=== PATIENT | female | born 2000 | race Caucasian/White ===

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

== ENCOUNTER 2022-04-26 13:01 | Outpatient (CLI) | payer OTHER, SELFPAY ==
[2022-04-26 20:03] LABS: Alanine Aminotransferase 17 U/L (6-35); Albumin Level 4.6 g/dL (3.7-5.6); Alkaline Phosphatase 54 U/L (45-116); Anion Gap 15 mmol/L (8-16); Aspartate Amino Transferase 37 U/L (14-36); Bilirubin,Total 0.5 mg/dL (0.2-1.3); Blood Urea Nitrogen 13 mg/dL (8-21); Calcium 9.4 mg/dL (8.9-10.7); Carbon Dioxide 23 mmol/L (22-30); Chloride 102 mmol/L (98-107); Estimated Glomerular Filt Rate > 60; Glucose 116 mg/dL (65-110); Potassium 3.9 mmol/L (3.4-5.0); Sodium 140 mmol/L (134-143)
[2022-04-26 20:08] LABS: Vitamin D 25 Hydroxy 46.7 ng/mL
[2022-04-26 20:42] LABS: Thyroid Stimulating Hormone 0.638 uIU/mL (0.465-4.680)
[2022-04-26 21:25] LABS: Basophils Percent Auto 0.5 % (0.2-1.2); Eosinophils Absolute Auto 0.2 K/mm3 (0-0.3); Eosinophils Percent Auto 2.5 % (0-4.4); Hematocrit 44.2 % (37.0-47.0); Hemoglobin 14.2 g/dL (12.0-15.0); Immature Granulocyte Absolute 0.02 K/mm3 (0.00-0.031); Immature Granulocyte Percent A 0.2 % (0-0.5); Lymphocytes Absolute Auto 2.76 K/mm3 (0.9-3.2); Lymphocytes Percent Auto 31.7 % (18.3-44.2); Mean Corpuscular HGB Conc 32.1 g/dl (32-36); Mean Corpuscular Hemoglobin 30.8 pg (26-34); Mean Corpuscular Volume 95.9 fl (80-100); Mean Platelet Volume 10.7 fl (7.4-10.4); Monocytes Absolute Auto 0.4 K/mm3 (0.1-0.6); Monocytes Percent Auto 4.9 % (2.6-8.5); Neutrophils Absolute Auto 5.2 K/mm3 (1.3-6.7); Neutrophils Percent Auto 60.2 % (45.5-73.1); Platelet Count Result 309 k/mm3 (150-375); Red Blood Count 4.61 M/mm3 (4.2-5.4); Red Cell Distribution Width 12.1 % (11.5-14.5); White Blood Count 8.7 K/mm3 (4.5-10.0)
== END 2022-04-26 13:02 | disposition home or self-care (01) ==
LOC: ANHGOSHLAB 13:02
PROVIDERS: PCP Nurse Practitioner Family; Visit Provider Nurse Practitioner Family
DX: E55.9 Vitamin D deficiency, unspecified (principal); Z00.00 Encounter for general adult medical examination without abnormal findings; F41.1 Generalized anxiety disorder
CPT/HCPCS: 36415; 80053; 82306; 84443; 85025

== ENCOUNTER 2023-05-04 14:19 | Outpatient (CLI) | payer OTHER, SELFPAY ==
[2023-05-04 18:39] LABS: Basophils Absolute Auto 0.1 K/mm3 (0.0-0.1); Basophils Percent Auto 0.6 % (0.2-1.2); Eosinophils Absolute Auto 0.1 K/mm3 (0-0.3); Eosinophils Percent Auto 0.9 % (0-4.4); Hematocrit 43.4 % (37.0-47.0); Hemoglobin 13.8 g/dL (12.0-15.0); Immature Granulocyte Absolute 0.03 K/mm3 (0.00-0.031); Immature Granulocyte Percent A 0.3 % (0-0.5); Lymphocytes Absolute Auto 2.82 K/mm3 (0.9-3.2); Lymphocytes Percent Auto 27.9 % (18.3-44.2); Mean Corpuscular HGB Conc 31.8 g/dl (32-36); Mean Corpuscular Hemoglobin 30.4 pg (26-34); Mean Corpuscular Volume 95.6 fl (80-100); Mean Platelet Volume 10.5 fl (7.4-10.4); Monocytes Absolute Auto 0.8 K/mm3 (0.1-0.6); Monocytes Percent Auto 7.8 % (2.6-8.5); Neutrophils Absolute Auto 6.3 K/mm3 (1.3-6.7); Neutrophils Percent Auto 62.5 % (45.5-73.1); Platelet Count Result 309 k/mm3 (150-375); Red Blood Count 4.54 M/mm3 (4.2-5.4); Red Cell Distribution Width 12.2 % (11.5-14.5); White Blood Count 10.1 K/mm3 (4.5-10.0)
[2023-05-04 19:16] LABS: Alanine Aminotransferase 14 U/L (6-35); Albumin Level 4.5 g/dL (3.5-5.1); Alkaline Phosphatase 53 U/L (38-126); Anion Gap 7 mmol/L (8-16); Aspartate Amino Transferase 37 U/L (14-36); Bilirubin,Total 0.4 mg/dL (0.2-1.3); Blood Urea Nitrogen 9 mg/dL (7-17); Calcium 9.4 mg/dL (8.4-10.2); Carbon Dioxide 28 mmol/L (22-30); Chloride 103 mmol/L (98-107); Estimated Glomerular Filt Rate > 60; Glucose 86 mg/dL (65-110); Potassium 4.2 mmol/L (3.4-5.0); Sodium 138 mmol/L (137-145)
[2023-05-04 19:43] LABS: Thyroid Stimulating Hormone 0.482 uIU/mL (0.465-4.680)
[2023-05-04 20:22] LABS: Vitamin D 25 Hydroxy 41.5 ng/mL
[2023-05-08 10:59] LABS: Vitamin B6 53.1 ng/mL (2.1-21.7)
== END 2023-05-04 14:20 | disposition home or self-care (01) ==
LOC: ANHGOSHLAB 14:20
PROVIDERS: PCP Family Medicine; Visit Provider Nurse Practitioner Family
DX: Z13.29 Encounter for screening for other suspected endocrine disorder (principal); R20.0 Anesthesia of skin; R20.2 Paresthesia of skin; R11.2 Nausea with vomiting, unspecified; E55.9 Vitamin D deficiency, unspecified; R53.83 Other fatigue; E53.8 Deficiency of other specified B group vitamins; D64.9 Anemia, unspecified
CPT/HCPCS: 36415; 80053; 82306; 82607; 84207; 84443; 85025

== ENCOUNTER 2024-06-13 10:54 | Outpatient (CLI) | payer OTHER, SELFPAY ==
[2024-06-13 14:14] LABS: Basophils Absolute Auto 0.1 K/mm3 (0.0-0.1); Basophils Percent Auto 0.6 % (0.2-1.2); Eosinophils Absolute Auto 0.3 K/mm3 (0-0.3); Eosinophils Percent Auto 3.6 % (0-4.4); Hematocrit 43.6 % (37.0-47.0); Hemoglobin 14.3 g/dL (12.0-15.0); Immature Granulocyte Absolute 0.02 K/mm3 (0.00-0.031); Immature Granulocyte Percent A 0.2 % (0-0.5); Lymphocytes Absolute Auto 2.86 K/mm3 (0.9-3.2); Lymphocytes Percent Auto 33.6 % (18.3-44.2); Mean Corpuscular HGB Conc 32.8 g/dl (32-36); Mean Corpuscular Hemoglobin 30.3 pg (26-34); Mean Corpuscular Volume 92.4 fl (80-100); Mean Platelet Volume 10.6 fl (7.4-10.4); Monocytes Absolute Auto 0.8 K/mm3 (0.1-0.6); Monocytes Percent Auto 9.3 % (2.6-8.5); Neutrophils Absolute Auto 4.5 K/mm3 (1.3-6.7); Neutrophils Percent Auto 52.7 % (45.5-73.1); Platelet Count Result 287 k/mm3 (150-375); Red Blood Count 4.72 M/mm3 (4.2-5.4); Red Cell Distribution Width 11.9 % (11.5-14.5); White Blood Count 8.5 K/mm3 (4.5-10.0)
[2024-06-13 16:56] LABS: Thyroid Stimulating Hormone Reflex 0.441 uIU/mL (0.465-4.68)
[2024-06-13 17:54] LABS: Free T4 Free Thyroxine Reflex 0.97 ng/dL (0.78-2.19)
[2024-06-13 18:43] LABS: Alanine Aminotransferase 9 U/L (6-35); Albumin Level 4.2 g/dL (3.5-5.1); Alkaline Phosphatase 62 U/L (38-126); Anion Gap 6 mmol/L (4-12); Aspartate Amino Transferase 40 U/L (14-36); Bilirubin,Total 0.4 mg/dL (0.2-1.3); Blood Urea Nitrogen 10 mg/dL (7-17); Calcium 9.3 mg/dL (8.4-10.2); Carbon Dioxide 25 mmol/L (22-30); Chloride 108 mmol/L (98-107); Cholesterol 166 mg/dL (0-200); Estimated Glomerular Filt Rate > 60; Glucose 74 mg/dL (65-110); HDL Direct 39 mg/dL; Potassium 4.4 mmol/L (3.4-5.0); Sodium 139 mmol/L (137-145); Triglycerides 78 mg/dL (<150)
[2024-06-13 18:55] LABS: LDL Cholesterol Direct 92 mg/dL
[2024-06-13 21:02] LABS: Total Triiodothyronine (T3) 1.63 NG/ML (0.97-1.69)
== END 2024-06-13 10:55 | disposition home or self-care (01) ==
LOC: ANHGOSHLAB 10:55
PROVIDERS: PCP Family Medicine; Visit Provider Nurse Practitioner Family
DX: E53.8 Deficiency of other specified B group vitamins (principal); F41.9 Anxiety disorder, unspecified; Z00.00 Encounter for general adult medical examination without abnormal findings; Z79.899 Other long term (current) drug therapy; Z13.220 Encounter for screening for lipoid disorders
CPT/HCPCS: 36415; 80053; 80061; 82607; 84439; 84443; 84480; 85025

== ENCOUNTER 2024-10-05 07:45 | Emergency (ER) | payer OTHER, SELFPAY ==
--- OUTSIDE RECORDS SUMMARY | 2024-10-05 07:49 | XMS_ITS | Clinical Summary ---
Author Organization [facility] Address [address] [place] [address] Care Team Providers Care Implement Mechanic Name Role Phone Nathan Nevarez MD Primary Care Provider Allergies No known active allergies Social History Tobacco Use Types Packs/Day Years Used Date Smoking Tobacco: Never Assessed Personal Safety Answer Date Recorded Getting School Help Needed Not on file 02/03 Comments No Sex and Gender Information Value Date Recorded Sex Assigned at Not on file Legal Sex Female 11:35 PM REHAB OFFICE COORDINATOR Gender Identity Not on file Sexual Orientation Not on file Last Filed Vital Signs Vital Sign Reading Time Taken Comments Blood Pressure 118/71 01/28/2023 5:30 PM CDT Pulse 60 01/28/2023 5:30 PM CDT Temperature 36.8 C (98.2 F) 01/28/2023 11:41 AM CDT Respiratory Rate 18 01/28/2023 1:56 PM CDT Oxygen Saturation 100% 01/28/2023 5:30 PM CDT Inhaled Oxygen Concentration - - Weight 70.3 kg (155 lb) 01/28/2023 11:41 AM CDT Height - - Body Mass Index - - Plan of Treatment Health Maintenance Due Date Last Done Comments Cervical Cancer Screening 2002 Depression Screening 2002 Hepatitis C Screening 2002 HPV Vaccines (1 - 3-dose series) 2017 Meningococcal B Vaccine (1 o f 2 - Standard) 2018 Regular Well Visit/Exam 18-64 2020 DTaP/Tdap/Td Vaccine (9 - Td or Tdap) 03/09/2024 03/09/2014, 03/09/2014, 07/25/2013, Additional history exists Covid-19 Vaccine (2023-2 5 season) 2024 04/15/2021, 03/25/2021 Influenza Vaccine (#1) 2024 Hepatitis B Screening Completed 06/07/2003 , 2002, 2002 Pneumococcal vaccine <65 Completed 004, 03/16/2003, 03/16/2003, Additional history exists Varicella Vaccines Completed 02/08/2008, 12/16/2003 Insurance [employer] JUAN C [id number] Care Teams Implement Mechanic Relationship Specialty Start Date End Date Nathan Nevarez MD PCP - General Family Practice 01/28/23
--- OUTSIDE RECORDS SUMMARY | 2024-10-05 07:49 | XMS_ITS | Clinical Summary ---
Author Organization [facility] Address [address] [place] [address] Care Team Providers Care Electric Power Line Repairer Name Role Phone Brittney Sepulveda MD Primary Care Provider [phone] Source Comments [facility],non-owned Affiliates and Associated Physician Practices is amultiple site organization consisting of ambulatory clinics and hospital sitesin [place], [place], [place] and [place]. This disclosure is being madepursuant to the Care Everywhere program and may not contain all information available regarding this patient. Last updated 18.[employer] [facility] Allergies No known active allergies Medications * Be aware that medications may not be up to date on this document. Alwaysverify current medications with the patient. Medication Sig Dispensed Refills Start Date End Date Status hydrOXYzine hcl (ATARAX) 10 MG tablet Take 10 mg by mouth 4 times daily as needed for Itching Active citalopram (CELEXA) 10 MG tablet Take 10 mg by mouth once daily Active levonorgestrel-ethinyl estradiol (VIENVA) 0.1-20 MG-MCG tablet Take 1 tablet by mouth once daily Active Active Problems Problem Noted Date Diagnosed Date BMI (body mass index), pediatric, 95-99% for age 0803/09/2014 Immunizations Name Administration Dates Next Due DTaP VACCINE IM (6wk-6yrs) 02/08/2008,,03/16/2003,01/12/2003, 2002 HEP B VACCINE, PED/ADOL 06/07/2003,2002, HIB BOOSTER 12/16/2003,03/16/2003,01/12/2003 ,2002 MENINGOCOCCAL CONJUGATE (MCV4P) 03/09/2014 MMR 02/08/2008,09/02/2003 PNEUMOCOCCAL CONJ, PEDS 09/02/2003,03/16/2003,,2002 POLIO IPV 02/08/2008,03/19/2004,01/12/2003 ,2002 PPD 09/02/2003 TDAP (7yrs+) 03/09/2014 VARICELLA 02/08/2008,12/16/2003 Family History Medical History Relation Name Comments Kidney Disease Father Heart Disease Maternal Grandfather Stroke Maternal Grandfather Allergies Mother Migraine Mother Arthritis Paternal Grandfather Hypertension Paternal Grandfather Cancer Paternal Grandmother ovarian Relation Name Status Comments Father Maternal Grandfather Mother Paternal Grandfather Paternal Grandmother Social History Tobacco Use Types Packs/Day Years Used Date Smoking Tobacco: Never Smokeless Tobacco: Never Sex and Gender Information Value Date Recorded Sex Assigned at Not on file Gender Identity Not on file Sexual Orientation Not on file Last Filed Vital Signs Vital Sign Reading Time Taken Comments Blood Pressure 102/78 12/01/2018 4:01 PM CDT Pulse 67 12/01/2018 4:01 PM CDT Temperature 37.1 C (98.7 F) 12/01/2018 4:01 PM CDT Respiratory Rate 17 12/01/2018 4:01 PM CDT Oxygen Saturation 98% 12/01/2018 4:01 PM CDT Inhaled Oxygen Concentration - - Weight 63.5 kg (140 lb) 12/01/2018 4:01 PM CDT Height 160 cm (5' 3 ) 12/01/2018 4:01 PM CDT Body Mass Index 24.8 12/01/2018 4:01 PM CDT Plan of Treatment Health Maintenance Due Date Last Done Comments PAP SMEAR 2002 HIV SCREENING 2017 HPV VACCINE (1 - 3-dose series) 2017 CHLAMYDIA/GONORRHEA SCREENING 2018 MENINGOCOCCAL (Group B) VACCINE SHARED DECISION-MAKING (1 of 2 - Standard) 2018 HEPATITIS C SCREENING 08/26/2020 DTAP/TDAP/TD VACCINES (7 - Td or Tdap) 03/09/2024 03/09/2014, 02/08/2008, 03/19/2004, Additional history exists COVID-19 VACCINE ( season) 2024 INFLUENZA VACCINE (#1) 2024 DEPRESSION SCREENING 07/25/2024 ZOSTER VACCINE (1 of 2) 2052 HEPATITIS B VACCINE Completed 06/07/2003, 2002, 2002 PNEUMOCOCCAL VACCINE Completed 09/02/2003, 03/16/2003, 01/12/2003, Additional history exists HIB VACCINE Completed 12/16/2003, 02/23, 01/12/2003, Additional history exists MENINGOCOCCAL GROUPS A/C/Y/W VACCINE Aged Out 03/09/2014 No longer eligible based on patient's age to complete this topic Goals Goal Patient Goal Type Associated Problems Recent Progress Patient-Stated? Author Reduce calorie intake Diet No Karen Garber MD Note: Caring for Your Overweight Child Eating a healthy diet: Think of the food your child eats in terms of GO, SLOW, and WHOA foods. They can enjoy GO foods almost any time they like. Limit SLOW foods to certain occasions, no more than a few times per week. And enjoy WHOA foods only on special occasions, and then eat only a small portion. GO foods include low-fat, low-calorie foods that are also low in added sugar. They tend to be rich in nutrients, such as vitamins, minerals, and other healthy substances. Fresh fruits and vegetables are great examples of GO foods. That said, fried vegetables and fruits canned in syrup, despite their vital ingredients, fall into the category of WHOA foods. Be sure to stock up on GO foods so that you can offer a variety of foods to keep things interesting. SLOW foods tend to be higher in fat and added sugar than GO foods are. Examples include fruit juices, baked goods made with white, refined flour; and poultry cooked with the skin still on. WHOA foods are the highest in fat and added sugar. Foods prepared with heavy creams and butter, fried foods, and fatty meats are examples of foods your child should only eat once in a while. One way to identify unhealthy eating triggers is for your child to keep a journal, in which they writes down the food they ate, where they ate it, the time of day and - extremely important - the reasons for eating. Did they devour two slices of meatball pizza after school because they were truly hungry or because they simply wanted to hang out at the pizza parlor with their friends? If they give the latter reason, perhaps next time the group can split a pizza and she could consciously choose to n urse a single slice, even if everyone else grabs two. Where can I go for more information? [employer] [employer] ( ) www.aap.org, HealthyChildren.org www.healthychildren.org Website and free downloadable gosia for smartphones: http://www.MENA PRESTIGE/ Use safety retraint in car Lifestyle Not on track( 017 11:23 AM CDT) Lashell Gaines RN Care Teams Electric Power Line Repairer Relationship Specialty Start Date End Date Brittney Sepulveda MD PCP - General Family Medicine 08/23/16
--- OUTSIDE RECORDS SUMMARY | 2024-10-05 07:49 | XMS_ITS | Patient Health Record ---
Author Organization [facility] Address [address] [place] [address] Support Name Relationship Address Phone Sandra Foster Guarantor Unknown Unavailable Reason For Referral No Information Plan Of Treatment No Information Insurance Providers Payer Name Payer Address Payer Phone Subscriber Number Group Number Insured Name Patient Relationship to Insured Coverage Start Date Coverage End Date All Sa[employer] [address] [address] [place], [place] [id number] Sandra Foster Self - patient is the insured
--- OUTSIDE RECORDS SUMMARY | 2024-10-05 07:49 | XMS_ITS | Data Portability ---
Author Organization [facility] Address [address] [place] [address] Care Team Providers Care Outsole Scheduler Name Role Phone SIMRAN PYLE Primary Care Provider [phone] RUPERTO MALDONADO Primary Care Provider [phone] Assessment Encounter Date Assessment Date Assessment LastModified by Organization Details LastModified Time 07/02/2024 07/02/2024 Annual gynecological exam performed. Patient will come back in a year unless there are new symptoms. [email or web address] Not available 06/29/2024 11:31:12 Plan of Treatment Reminders Order Date Submit Date Provider Last Modified By Organization Details Last Modified Time Details Appointments None recorded. Lab pap, IG + reflex HPV if ASC-U - if hpv positive run subtyping 16, 18/45 2023 024 [facility] (Lab), [address], [place], [address], 4 16:43:14 urinalysis, dipstick 2023 024 [email or web address], [address], [address], [place], [address], 4 10:08:35 hsv (1+2) DNA, serum 2022 023 [facility] (Lab), [address], [place], [address], 3 10:48:14 hsv-2 igg Ab, serum 2022 023 [facility] (Lab), [address], [place], [address], 3 10:48:14 hsv-1 igg Ab, serum 2022 023 [facility] (Lab), [address], [place], [address], 3 10:48:13 Referral None recorded. Procedures None recorded. Surgeries None recorded. Imaging None recorded. Medication Orders Nextstellis 3 mg-14.2 mg (28) tablet 2023 024 [facility], [facility] [place], [address], 4 09:19:46 valacyclovi r 500 mg tablet [address] [facility] [place], [address], 4 10:37:25 Macrobid 100 mg capsule 2023 024 [facility], [address] [place], [address], 4 12:20:44 Valtrex 1 gram tablet 2022 023 [facility], [address] [facility] [place], [place], [id number], 3 12:24:14 Nextstellis 3 mg-14.2 mg (28) tablet [email or web address] [facility], [place], [address], 3 14:28:59 Macrobid 100 mg capsule [email or web address] [place] [address] [facility] Store #77447, [address] , [place], [place], [id number], 4 11:31:28 Valtrex 1 gram tablet [address] [facility] #86595, [address] [facility], [place], [place], [id number], 3 17:15:30 lidocaine HCl 2 % mucosal jelly [address] [facility] #39504, [address] [facility], [place], [place], [id number], 3 12:07:57 Silvadene 1 % topical cream [address] [facility] #86621, [address] [facility], [place], [place], [id number], 4 09:32:42 Nextstellis 3 mg-14.2 mg (28) tablet [address] [facility]21921, [address] [facility], [place], [place], [id number], 3 11:34:56 Patient TargetsNo targets recorded. Patient InstructionsNo instructions recorded. Reason for Referral None Reported. Results Created Date Observation Date Name Description Value Unit Range Abnormal Flag Note LastModifiedBy Organization Detail LastModifiedTime 06/13/2006/13/2023 CT/GC AND TRICH OMONA S VAGIN EZE (RRNA ), SWAB chlamydia trachomatis, PCR Negati ve negati ve Not Available [facility] (Lab) [address], [place], [address], 06/14/2023 12:38:47 06/13/2006/13/2023 CT/GC AND TRICH OMONA S VAGIN EZE (RRNA ), SWAB neisseria gonorrhoeae, PCR Negati ve negati ve Not Available [facility] (Lab) [address], [place], [address], 06/14/2023 12:38:47 06/13/20 23 06/13/2023 CT/GC AND TRICH OMONA S VAGIN EZE (RRNA ), SWAB trichomonas vaginalis ribosomal RNA (rrna) Negati ve negati ve Not Available [facility] (Lab) [address], [place], [address], 06/14/2023 12:38:47 06/13/20 23 06/13/2023 HERPE S SMPLE X VIRUS TYPE 1 SPECI FIC AB, IGG herpes simplex virus 1 IgG Positi ve negati ve abnormal Not Available [facility] (Lab) [address], [place], [address], 06/19/2023 10:48:13 06/13/20 23 06/13/2023 HERPE S SMPLE X VIRUS TYPE 1 SPECI FIC AB, IGG herpes simplex virus 1 IgG, quant 1.1 ai 0.0-0. 8 high Not Available [facility] (Lab) [address], [place], [address], 06/19/2023 10:48:13 06/13/20 23 06/13/2023 HERPE S SIMPL EX VIRUS TYPE 2 SPECI FIC AB, IGG herpes simplex virus 2 IgG Negati ve negati ve Not Available [facility] (Lab) [address], [place], [address], 06/19/2023 10:48:14 06/13/20 23 06/13/2023 HERPE S SIMPL EX VIRUS TYPE 2 SPECI FIC AB, IGG herpes simples virus 2 IgG, quant <0.2 ai 0.0-0. 8 Not Available [facility] (Lab) [address] [place], [address], 06/19/2023 10:48:14 06/13/20 23 06/13/2023 HERPE S SIMPL EX VIRUS 1,2 DNA, RT PCR, BLOOD /BODY FLUID source SERUM Not Available [facility] (Lab) [address] [place] [facility] [place], [address], 06/19/2023 10:48:14 06/13/20 23 06/13/2023 HERPE S SIMPL EX VIRUS 1,2 DNA, RT PCR, BLOOD /BODY FLUID hsv 1 DNA DETECT ED abnormal Low Posit chikis. Resul t(s) confi rmed by john curtis. Not Available [facility] (Lab) [address], [place], [address], 06/19/2023 10:48:14 06/13/20 23 06/13/2023 HERPE S SIMPL EX VIRUS 1,2 DNA, RT PCR, BLOOD /BODY FLUID hsv 2 DNA NOT DETECT ED REFER ENCE RANGE : NOT DETEC KELLY This test was devel oped and its phoebe tical perfo rmanc e maggy cteri stics have been deter mined by [facility]. It has not been clear ed or appro jimena by FDA. This assay has been valid ated pursu ant to the CLIA regul ation s and is used for clini vadim purpo ses. Not Available [facility] (Lab) [address], [place], [address], 06/19/2023 10:48:14 04/27/20 24 04/27/2024 WOMEN 'S HEALT H SWAB PLUS, RO bacterial vaginosis (bv), tma Negati ve negati ve Not Available [facility] (Lab) [address], [place], [address], 05/05/2024 08:22:17 04/27/20 24 04/27/2024 WOMEN 'S HEALT H SWAB PLUS, RO nadiya species, tma Positi ve negati ve abnormal Not Available [facility] (Lab) [address], [place], [address], 05/05/2024 08:22:17 04/27/20 24 04/27/2024 WOMEN 'S HEALT H SWAB PLUS, RO nadiya glabrata, tma Negati ve negati ve Not Available [facility] (Lab) [address], [place], [address], 05/05/2024 08:22:17 04/27/20 24 04/27/2024 WOMEN 'S HEALT H SWAB PLUS, RO trichomonas vaginalis, tma Negati ve negati ve Not Available [facility] (Lab) [address], [place], [address], 05/05/2024 08:22:17 04/27/20 24 04/27/2024 [facility], RO chlamydia trachomatis, PCR Negati ve negati ve Not Available [facility] (Lab) [address], [place], [address], 05/05/2024 08:22:17 04/27/20 24 04/27/2024 [facility], RO neisseria gonorrhoeae, PCR Negati ve negati ve Bacte rial vagin osis detec ts the follo wing bacte juanito assoc iated with bacte rial vagin osis (BV): Lacto bacil marleny (L. gasse ri, L. crisp atus and L. jense isadora), Gardn erell a vagin eze, and Atopo bium vagin ae. A singl e quali tativ e resul t is repor kelly base on instr ument softw are to deter mine BV posit chikis or negat chikis statu s. The [facility] speci es group tests for C. albic ans, C. tropi calis , C. parap damian is, C. dubli niens is. Testi ng is perfo rmed using the Trans cript ion Media kelly Ampli ficat ion metho d. Tests for Kamini da glabr kenneth, Trich omona s vagin eze, Chlam ydia trach omati s, and Neiss eria gonor rhoea e are also inclu ded in this panel . Not Available [facility] (Lab) [address], [place], [address], 05/05/2024 08:22:17 04/27/20 24 04/27/2024 CULTU RE: URINE result report SEE RESULT S BELOW Test: Cultu re: Urine Speci men Sourc e: Urine - Clean Catch Speci men Type: Urine Speci men Date: 2023 0950 Resul t Date: 2023 0450 Resul t Statu s: Final resul t Abnor mal: No Resul ting Lab: [facility] [address] [facility] [place] [address] Tel: CULTU RE ----- ----- ----- --- No growt h in 1 day (dete ction level of 10,00 0 colon ies / ml.) Not Available [facility] (Lab) [address], [place], [address], 05/05/2024 08:22:17 04/27/20 24 04/27/2024 CULTU RE: HSV/ VZV hsv culture/type Commen t abnormal Posit chikis for Herpe s simpl ex virus type- 1. Typin g was confi rmed by monoc lonal antib frantz micro scopi c immun ofluo resce nce. Not Available [facility] (Lab) [address], [place], [address], 05/05/2024 08:22:17 04/27/20 24 04/27/2024 CULTU RE: HSV/ VZV viral culture, rapid,varice lla Commen t Herpe s simpl ex virus was isola kelly and confi rmed by fluor escen t antib frantz stain ing. The isola tion of Varic gabino- Zoste r virus from this cultu re is not possi ble due to the growt h of Herpe s simpl ex virus . This does not rule out the possi bilit y of Varic gabino- Zoste r virus infec tion. Not Available [facility] (Lab) [address], [place], [address], 05/05/2024 08:22:17 04/27/20 24 04/27/2024 urina lysis , dipst ick Leukocytes + Not Available [facility] [address], [place], [address], 04/27/2024 09:41:12 04/27/20 24 04/27/2024 urina lysis , dipst ick Protein + Not Available [facility] [address], [place], [address], 04/27/2024 09:41:12 04/27/20 24 04/27/2024 urina lysis , dipst ick pH 5 Not Available [facility] [address], [place], [address], 04/27/2024 09:41:12 04/27/2004/27/2024 urina lysis , dipst ick Blood ++ Not Available [facility] [address], [place], [address], 04/27/2024 09:41:12 04/27/20 24 04/27/2024 urina lysis , dipst ick Specific [place] 1.015 Not Available [facility] [address], [place], [address], 04/27/2024 09:41:12 07/02/20 24 07/02/2024 IMAGE GUIDE D PAP, REFLE X HPV IF ASCUS ONLY image guided Pap, reflex HPV ASCUS only SEE RESULT S BELOW CASE REPOR T: Cytol ogy Gynec ologi vadim Repor t Case: [id number] Autho riclay g Provi dwayne: Dermo dy, Aggie , ANP, PROGRAM ANALYST Colle cted: 07/02 1051 Order ing Locat ion: [place] [facility] Recei jimena: 07/03 1753 First Scree n: Mami Tello, CT Speci men: Scree vika Pap - Image d, Cervi x STATE MENT OF ADEQU ACY: Satis facto ry for evalu ation Trans forma tion zone compo nent prese nt ----- ----- ----- ----- ----- ----- ----- ----- ----- ----- ----- ----- ----- ----- ----- ----- ----- ---- FINAL DIAGN OSIS: Negat chikis for Intra epith elial Lesio n or Jadon torres (NIL) . 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 CLINI VADIM INFOR MATIO N: Menst rual Statu s: LMP (if appli cable ): Clini vadim Histo ry/Pr eviou s Pap: Type of Neopl sarah (if appli cable ): Signi fican t Clini vadim Findi ngs: Other Histo ry: Hormo mere (if appli cable ): PAP EDUCA MICHELE L NOTE: The Pap Test is a scree vika test with an inher ent false negat chikis rate. Liqui d-bas ed sampl ing may decre ase, but will not elimi griselda, false negat chikis resul ts. A negat chikis resul t does not precl ude the prese nce and/o r devel opmen t of disea se, since the prese nce of abnor mal cells in the sampl e depen ds on the locat ion of the lesio n and sampl ing techn ique. Pablo nued regul ar scree vika is the best metho d of cance r preve ntion . If repor kelly cytol ogic findi ng do not corre late with physi vadim and/o r histo rical findi ngs, furth er inves tigat ion is recom lay mireles, as clini alida villegas. Not Available [facility] (Lab) [address], [place], [address], 07/11/2024 16:43:14 Result Notes None recorded. Medical Equipment None Reported. Allergies No known drug allergies Medications Name Sig Start Date Stop Date Status Note LastModified by Organization Details LastModified Time citalopram 40 mg tablet TAKE 1 TABLET BY MOUTH DAILY active Not Available Not Available No t Available fluconazole 150 mg tablet Take 150 mg by oral route. 06/29 completed Not Available Not Available Not Available citalopram 10 mg tablet TAKE 1 TABLET BY MOUTH DAILY 03/25 completed Not Available Not Available Not Available valacyclovi r 1 gram tablet Take valacyclo vir 1 gram PO daily for suppressi ve therapy active Not Available Not Available No t Available hydrocodone 5 mg-acetamin ophen 325 mg tablet TAKE 1 TABLET BY MOUTH EVERY 6 HOURS NEEDED 06/13 completed Not Available Not Available Not Available clonazepam 0.5 mg tablet TAKE 1 TABLET BY MOUTH ONCE DAILY NEEDED FOR PANIC 04/27 completed Not Available Not Available Not Available lidocaine HCl 2 % mucosal jelly Apply topically to affected area q4-6hrs PRN 07/07 completed Not Available Not Available Not Available prochlorper azine maleate 10 mg tablet TAKE 1 TABLET BY MOUTH EVERY 6 HOURS NEEDED FOR NAUSEA OR VOMITING 04/27 completed Not Available Not Available Not Available valacyclovi r 500 mg tablet Take 1 tablet twice a day by oral route for 3 days. active Not Available Not Available No t Available sulfamethox azole 800 mg-trimetho prim 160 mg tablet TAKE 1 TABLET BY MOUTH EVERY 12 HOURS FOR 5 DAYS 06/13 completed Not Available Not Available Not Available omeprazole 40 mg capsule,del ayed release TAKE 1 CAPSULE BY MOUTH DAILY 07/07 completed Not Available Not Available Not Available tramadol 50 mg tablet TAKE 1 TABLET BY MOUTH EVERY 6 HOURS NEEDED 07/07 completed Not Available Not Available Not Available amoxicillin 875 mg tablet TAKE 1 TABLET BY MOUTH TWICE DAILY FOR 10 DAYS 01/26 completed Not Available Not Available Not Available citalopram 20 mg tablet TAKE 1 TABLET BY MOUTH ONCE DAILY WITH MEALS 06/13 completed Not Available Not Available Not Available ibuprofen 600 mg tablet TAKE 1 TABLET BY MOUTH EVERY 6 HOURS WITH FOOD NEEDED 07/02 completed Not Available Not Available Not Available methylpredn isolone 4 mg tablets in a dose pack TAKE 6 TABLETS BY MOUTH THE FIRST DAY AND THE REMAINING DIRECTED 01/26 completed Not Available Not Available Not Available SSD 1 % topical cream APPLY A 1/16 INCH (1.5 MM) THICK LAYER TO ENTIRE AFFECTED AREA BY TOPICAL ROUTE 2 TIMES PER DAY x 3-5 days active Not Available Not Available No t Available ondansetron 4 mg disintegrat ing tablet DISSOLVE 1 TABLET IN MOUTH TWICE DAILY 07/07 completed Not Available Not Available Not Available naproxen 500 mg tablet TAKE 1 TABLET BY MOUTH TWICE DAILY 03/25 completed Not Available Not Available Not Available azithromyci n 500 mg tablet TAKE 2 TABLETS BY MOUTH AT ONCE 04/24 completed Not Available Not Available Not Available nitrofurant oin monohydrate /macrocryst als 100 mg capsule Take 1 capsule every 12 hours by oral route with meals for 7 days. 06/29 completed Not Available Not Available Not Available citalopram 04/24 completed Not Available Not Available Not Available cholecalcif rob (vitamin D3) 50 mcg (2,000 unit) capsule TAKE 1 CAPSULE BY MOUTH DAILY 01/26 completed Not Available Not Available Not Available lidocaine 2 % mucosal jelly in applicator APPLY TOPICALLY TO THE AFFECTED AREA EVERY 4 TO 6 HOURS NEEDED 04/27 completed Not Available Not Available Not Available Kurvelo (28) 0.15 mg-0.03 mg tablet TAKE 1 TABLET BY MOUTH EVERY DAY 03/25 completed Not Available Not Available Not Available Blisovi Fe 08/13 (28) 1 mg-20 mcg (21)/75 mg (7) tablet TAKE 1 TABLET BY MOUTH EVERY DAY 06/13 completed Not Available Not Available Not Available Nextstellis 3 mg-14.2 mg (28) tablet Take 1 tablet every day by oral route with meals for 90 days, for contracep tion. 2023 active Not Available Not Available Not Avai lable Vitals Date Recorded Body height Body mass index (BMI) Percentile per age and sex Body weight Systolic blood pressure Diastolic blood pressure Provider Name and Address Organization Details Last Updated DateTime 05/05/2023 160.02 cm 87 % 74390.2 2 g 112 mm[Hg] 70 mm[Hg] [facility] 3 15:08:02 Date Recorded Body height Body mass index (BMI) Body mass index (BMI) Percentile per age and sex Body weight Systolic blood pressure Diastolic blood pressure Provider Name and Address Organization Details Last Updated DateTime 3 160.02 cm 27.5 kg/m2 87 % 76956.8 2 g 112 mm[Hg] 73 mm[Hg] [facility] 3 15:24:37 Date Recorded Body height Body mass index (BMI) Percentile per age and sex Body mass index (BMI) Body weight Systolic blood pressure Diastolic blood pressure Provider Name and Address Organization Details Last Updated DateTime 3 160.02 cm 88 % 28 kg/m2 16993.5 9 g 113 mm[Hg] 72 mm[Hg] [facility] 3 12:07:19 Date Recorded Body height Body mass index (BMI) Body weight Systolic blood pressure Diastolic blood pressure Provider Name and Address Organization Details Last Updated DateTime 04/27/2024 160.02 cm 31.4 kg/m2 51044.85 g 101 mm[Hg] 67 mm[Hg] [facility] 4 09:32:14 Date Recorded Body height Body mass index (BMI) Body weight Systolic blood pressure Diastolic blood pressure Provider Name and Address Organization Details Last Updated DateTime 07/02/2024 160.02 cm 19.7 kg/m2 81381.75 g 107 mm[Hg] 75 mm[Hg] [facility] 09:10:00 Social History Question Answer Notes LastModified by Organizat ion Details LastModified Time Tobacco Smoking Status Never Smoker Milagros Staton [facility] 07/07/2023 12:05:09 Do You Have An Advance Directive? No [email or web address] Information n ot available 06/25/2021 What Is Your Level Of Alcohol Consumption? None Information not available 03/25/2021 Are You Blind Or Do You Have Difficulty Seeing? No [email or web address] Information n ot available 06/25/2021 What Is Your Level Of Caffeine Consumption? Heavy [email or web address] Information not available 07/02/2024 How Much Tobacco Do You Chew? None [email or web address] Information not available 06/25/2021 In The 14 Days Before Symptom Onset, Have You Had Close Contact With A Laboratory-confirm ed COVID-19 While That Case Was Ill? No [email or web address] Information n ot available 06/25/2021 In The 14 Days Before Symptom Onset, Have You Had Close Contact With A Person Who Is Under Investigation For COVID-19 While That Person Was Ill? No [email or web address] Information not available 06/25/2021 Have You Been To An Area Known To Be High Risk For COVID-19? No Information not available 05/05/2023 Are You Deaf Or Do You Have Serious Difficulty Hearing? No [email or web address] Information not available 06/25/2021 What Type Of Diet Are You Following? REGULAR [email or web address] Information n ot available 06/25/2021 What Is The Highest Grade Or Level Of School You Have Completed Or The Highest Degree You Have Received? 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 No [email or web address] Information not available 06/25/2021 Do You Use Protection During Sex? Usually [email or web address] Information not available 06/25/2021 Do You Use Your Seat Belt Or Car Seat Routinely? Yes [email or web address] Information not available 06/25/2021 Do You Have Smoke And Carbon Monoxide Detectors In Your Home? Yes [email or web address] Information not available 06/25/2021 How Much Tobacco Do You Smoke? No [email or web address] Information not available 06/25/2021 Do You Feel Stressed (tense, Restless, Nervous, Or Anxious, Or Unable To Sleep At Night)? [id number] Information not available 01/26/2023 Do You Use Any Illicit Or Recreational Drugs? No Information not available 03/25/2021 Do You Use Sunscreen Routinely? No [email or web address] Information not available 06/25/2021 Has Tobacco Cessation Counseling Been Provided? No [email or web address] Information not available 07/07/2023 Have You Used IV Drugs? No Information not available 06/25/2021 Do You Or Have You Ever Used Any Other Forms Of Tobacco Or Nicotine? No [email or web address] Information not available 07/07/2023 Sex: Unknown Functional Status Question Answer Note LastModified by Organization D etails LastModified Time Are you able to walk? YESWOREST [email or web address] Information not available 06/25/2021 What is your exercise level? Moderate Information not available 06/25/2021 Mental Status None recorded. Family History Relationship Description Onset Age of this Age Resolved Age Notes LastModified by Organization Details LastModified Time Mother Asthma [email or web address] Not available 12:32:08 Mother Hypercholest erolemia [email or web address] Not available 06/25 16:08:42 Mother Disorder of thyroid gland [email or web address] Not available 2020 12:33:04 Mother Anxiety disorder Not available 06/25 16:08:42 Mother Disorder of nervous system Not available 06/25 16:08:42 Mother Depressive disorder Not available 06/25 16:08:42 Paternal Grandmother Carcinoma in situ of breast [email or web address] Not available 2023 09:03:32 Paternal Grandmother Suspected ovarian cancer Not available 2023 09:03:32 Father Hypertensive disorder [email or web address] Not available 06/25 16:08:42 Paternal Grandfather Substance abuse [email or web address] Not available 06/25 16:08:42 Medical History Condition Response Allergies (Food, seasonal, environmental ) N Other N Breast Cancer N Drug/Latex Allergies/Reactions N Blood Transfusion N Dermatologic Disorders N Lung Disease N Defects or Inherited Disease N Breast Problem N Gestational Diabetes N Hematologic disorders N Anesthesia Complications N History of STI Y Deep Vein Thrombosis N Polycystic ovary syndrome N Anxiety Disorder Y Autoimmune disease N Arthritis N Infertility N Polyps N Acid Reflux (GERD) N History of abnormal pap N Cancer N Stroke N Varicosities N Neurologic/Epilepsy N Endometriosis N High Cholesterol N Headaches Y Fibromyalgia N Kidney Disease N Heart Problems N Kidney or Bladder Problems N Thyroid Problems N GI Problems N Eating Disorder N Anemia N Art (IVF or FET) N Psychiatric Illness N Ovarian Cancer N Diabetes N Pulmonary (TB, Asthma) N Hepatitis/Liver Disease N No Past Medical History N Eczema N Urinary Tract Infection N Abuse/Domestic Violence N Asthma N Trauma/Violence N Depression/ depression N Heart Disease N Pre-Eclampsia N Hypertension N Osteoporosis N Thrombophilias N Gynecological History Statement/Question Response Flow Moderate Date of LMP 06/28/2024 On BCP's at Conception? N N Was last menstrual period normal Y STIs/STDs Yes HPV Vaccine N Duration of Flow (days) 6 13 Current Control Method BCPs Are cycles usually normal Y Sexually Active? Y BCPs Menses Monthly Y Age of first menstrual cycle 15 Date of Last Pap Smear Sexual Problems? N Desired Control Method BCPs LMP Definite N Obstetrics History GPAL:G 0 P 0 0 0 0 Type Value Living 0 Total 0 Past Encounters Encounter ID Performer Location Encounter Start Date Encounter Closed Date Diagnosis/Indication Diagnosis SNOMED-CT Code Diagnosis ICD10 Code Diagnosis Note [id number] Lucille Coleman MD [facility] [address] [address] 03/25/2021 12:01:49 03/25/2021 15:45:47 Gynecologic examination 55943206 Z01.419 Venereal d isease screening 926671101 Z11.3 Initial pr escription of oral contraception 721824254 Z30.011 [id number] Lucille Coleman MD [facility] [address],[facility] [place] [address] 04/24/2021 10:03:00 04/24/2021 13:11:01 Chlamydial infection [id number] A74.9 [id number] Diamond Calderon [facility] [address] [address] 06/25/2021 15:55:25 06/25/2021 17:06:06 [id number] Lin Grimes , [facility] [address] [address] 01/26/2023 15:18:15 01/26/2023 16:20:40 Gynecologic examination 46080485 Z01.419 Take Calcium with Vitamin D 1200mg daily if not receiving in daily diet. It is strongly advised to have an annual flu shot and up can obtain at most pharmacies . If you have not had a TDap shot in the last 10 years you should obtain one as well. Discussed with patient & provided with informatio n regarding Gardisil vaccine to prevent the 4 strains for HPV that cause cervical cancer. Encourage safe sexual practices, to use condoms and limit partners if not already in a monogamous relationsh ip. Do monthly self breast exams. BRCA testing is now available for patients with strong genetic history of female cancer. If interested contact the office. Engage in daily exercise of low impact aerobic exercise 45-60 minutes 4-5 times weekly. Avoid tobacco, illicit drugs, and alcohol. This lifestyle behavior pattern will lead to less health conditions and longer life span. If BMI greater than 25 weight watchers or dietary consult advised. Pap smear is not recommende d prior to the age of 21. If you have any concerns, pelvic, or vaginal problems we can discuss testing. Patient received above instructio ns, and questions have been answered. If you have any questions please call or respond to this email. Patient was made aware of the patient portal and may obtain a paper copy of today's plan if desired. Pap due 2023 STD Screen declined Genetic Screen discussed Colon Screen na Dexa Screen na Routine Labs UTD Initial pr escription of oral contraception 837418664 Z30.011 Doing well on OCPRF sent x 1yr Generalize d anxiety disorder [id number] F41.1 PCP left & having a difficult time finding a new one.Out of her medication for almost a week now & anxiety is slowly creeping back up on her.Neg suicidal ideations or thoughts of self harm.We discussed restarting this therapy & if any issues return for f/u.RF sent x 1yrIf anxiety becomes too complicate d will refer to [facility]. [id number] Lin Grimes [facility] [address],[place] [address] 05/05/2023 14:55:02 05/06/2023 11:35:47 Nausea and vomiting [id number] R11.2 Today we decided to switch to nextstilli s to see if this helps since this issue seems to be very cyclic in nature and occurs about 1.5wks after her last day of her menses. Starting B12/Fina D treatment with PCP. Treated for I33Gtjlpbr nd B6 as this can help N/V sometimes as well.She reports her other labs with primary were wnl. We will do a telehealth med check in 2-3mos unless needs to move appt up.No other questions today.Cons ider imaging gallbladde r as reported discomfort is upper right/midd le--possib le referral to GI. Time spent in visit is a total of 30 mins with at least 50% of visit consisting of counseling and review of plan of care. [id number] Lin Grimes [facility] [address],[place] [address] 06/13/2023 15:18:26 06/13/2023 17:27:59 Genital herpes simplex [id number] A60.9 Today we discussed HSV, course of treatment/ management .Counseled on HSV/Rx's. Counseled on medication R/B's, Most common side effects, & use. All questions were answered to patient satisfacti on. Reviewed h/o given for additional home review.Enc ouraged to talk with partner.Eladia mckeon ordered.ST D screen sent Time spent in visit is a total of 30 mins with at least 50% of visit consisting of counseling and review of plan of care. Urinary symptoms [id number] R39.9 Medicaton sentUnable to provide urine specimen due to pain of lesions at this time. [id number] Lin Grimes [facility] [address],[place] [address] 07/07/2023 12:03:34 07/07/2023 14:33:42 Genital herpes simplex [id number] A60.9 Vaginal exam shows lesions resolved; but some irritation to skin around introital entry way.Sugges kelly crisco daily use and avoid contact irritants for at least the next week so area can continue to heal/renew .Discussed prn use if has another break out.If breakouts become more frequent can consider suppressiv e therapy wt use of valtrex Nausea and vomiting [id number] R11.2 Patient is here today for a medicaton check of control. She voices goals of therapy have been met with use of this therapy. She denies neg side effects. She is eating, drinking, sleeping well; moods are stable & periods are well regulated. Wishes to continue this method of BC. Appropriat e to continue this medication . If insurance does not cover; okay to call & request samples.Th is is one that has completely resolved her nausea/vom iting. Time spent in visit is a total of 26 mins with at least 50% of visit consisting of counseling and review of plan of care. [id number] AGGIE LAYTON [facility] [address] [address] 04/27/2024 09:20:24 04/27/2024 10:43:25 Urinary symptoms [id number] R39.9 Urine culture sent for confirmati on of UTI. Empirical treatment ordered due to reported symptoms and urine dipstick results. Genital he rpes simplex [id number] A60.9 Discussed HSV lesions on exam. Culture obtained. Offered suppressiv e therapy to prevent recurrent outbreaks, patient declined at this time. Venereal d isease screening [id number] Z11.3 Pt requested STI testing for GC/CT.Disc ussed the various types of STDs, related symptoms and the potential consequenc es (including effects on fertility) of STD infections . Reviewed ways to limit exposure and prevention techniques . [id number] Ann Marie Martin [facility] [address],[place] [address] 07/02/2024 09:03:09 07/02/2024 09:29:31 Gynecologic examination 78328470 Z01.419 Annual gynecologi vadim exam performed. Patient will come back in a year unless there are new symptoms. Suggest Calcium with Vitamin D if not eating in diet. Patient advised to get annual flu shot. Recommend yearly physicals and perform monthly breast exams. Genetic testing is available for patients with family history of cancer. Engage in safe sexual practices, use condoms. Encouraged to have daily exercise. Avoid tobacco and illicit drugs, moderation of alcohol. If BMI greater than 25 dietary consult advised. If you have any questions please call or email. Pap smear- pap w/ HPV collected laboratory evaluation - PCP STI testing - declined Contracept [facility] care management [id number] Z30.9 Happy with BC pills. Risks/bene fits reviewed.R efills sent x one year. Health Concerns Section Related Observation LastModified by Organization Detai ls LastModified Time None Recorded Concern Status LastModified by Organization Details LastModified Time None Recorded Advance Directives Directive N: Payers Encounter Date Sequence Insurance Name Policy Number Policy Antonio Covered Member ID Antonio Member ID Guarantor Name 05/05/2023 1 [facility] [id number] [facility] [id number] [facility] 06/13/2023 1 [facility] [id number] [place] [address] [id number] [facility] 07/07/2023 1 [facility] [id number] [facility] [id number] [facility] 04/27/2024 1 [facility] [id number] [place] [address] [id number] [facility] 07/02/2024 1 [facility] [id number] [place] [address] [id number] [facility] Notes Date Note Type Note Provider Name and Address Organization Details Recorded Time 05/05/2023 text/html Sandra is here today to discuss her BC and possible connection to cyclical N/V that she experiences about 1.5wks after having her cycle. Feeling well today no sx's currently. She is working with her PCP as well to r/o GI issues.Sx's do not present after eating certain foods and is not even all month.Has been on her current BCP for >10yrs.Questions if she needs to change this.Reports PCP found low fina B12/possible low Fina D. Neg GERD, changes in BM, abd bloating, flatus. Lin Grimes, RENE- [address], [place], [address], [facility] 05/06/2023 11:35:33 06/13/2023 text/html Sandra is a 22y o white reproductive age female here today with complaints of painful bumps and razor cuts on my vagina. Went to ED this past weekend.Didn't really do an exam.Didn't test her for anything.Gave her morphine via IV and told her to f/u with [facility]. Neg pain of abd/pelvis/flank++ urinary sx's painful urination dysuria, hesitation with urination. Pressure.Neg GI sx'sNeg N/V/F/C/DNeg Vag d/c, odor, irritation, itching++Vaginal bumps [facility] [address], [place], [address], [facility] 06/13/2023 17:21:04 07/07/2023 text/html Sandra is here today for medication check of Valtrex/Nextstillis. [facility] [address], [place], [address], [facility] 07/07/2023 14:33:01 04/27/2024 text/html Vaginal/Vulvar ProblemReported bypatient.Location:v ulva Onset/Timing:abrupt Duration:present for 1-7 days Quality:burning; painful; irritation; ulceration Severity:mild Context:sexually active Alleviating Factors:none Aggravating Factors:burning with urination Associated Symptoms:vulvar pain;vulvar lesions Patient presents to the office for self-swab for STIs. Patient reports painful lesions on vulva that appeared a few days ago. 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 Patient also reports strong odor of urine and dysuria. Denies urgency, frequency, hematuria. Patient denies any other concerns. AGGIE LAYTON NP [address], [place], [address], [facility] 04/27/2024 10:37:54 07/02/2024 text/html Annual GYNReport ed bypatient.Menstrual cycle:Normal menses Urinary symptoms:No hematuria; No incontinence Vulva:No genital lesion Vagina:Normal vaginal discharge Breast:No breast pain; No breast lump; No nipple discharge Current Contraception:Satisf ied with current contraception; Oral contraceptives Sexual complaints:No sexual complaints; No pain during intercourse; Normal libido Menopausal Symptoms:No menopausal symptoms; Normal vaginal lubrication Psychological symptoms:No depression; No anxiety; No PMDD Preventive measures:Encourage self breast examination; Encourage regular exercise; Encourage no tobacco use; Encourage regular mammograms starting age 40 Patient presents for annual well woman exam. Patient denies concerns today. Ann Marie Martin [facility] 07/02/2024 09:39:05 OBGyn Episode No OBEpisode recorded.
--- OUTSIDE RECORDS SUMMARY | 2024-10-05 07:49 | XMS_ITS | Referral Summary ---
Author Organization [facility] Address [address] [place] [address] Care Team Providers Care Installer Molding And Trim Name Role Phone Nathan Nevarez MD Primary Care Provider Allergies No known active allergies Social History Tobacco Use Types Packs/Day Years Used Date Smoking Tobacco: Never Assessed Personal Safety Answer Date Recorded Getting School Help Needed Not on file 02/03 Comments No Sex and Gender Information Value Date Recorded Sex Assigned at Not on file Legal Sex Female 11:35 PM INDIVIDUALIZED EDUCATION PLAN AIDE Gender Identity Not on file Sexual Orientation [...] Mass Index - - Plan of Treatment Not on file Insurance [employer] JUAN C [id number] Care Teams Installer Molding And Trim Relationship Specialty Start Date End Date Nathan Nevarez MD PCP - General Family Practice 01/28/23
--- OUTSIDE RECORDS SUMMARY | 2024-10-05 07:49 | XMS_ITS ---
Author Organization [facility] Address [address] [place] [address] Care Team Providers Care Pain Management Specialist Name Role Phone zzzzMigration, zzzzProvider Unavailable Unav ailable REASON FOR VISIT EMR-Edwardo Encounters Encounter Location Date Provider Diagnosis [facility] [address] [place] [address] 05/15/2023 zzzzProvider zzzzMigration Plan Of Treatment No Information Progress Notes * Sandra FOSTER EDOB:2000 (24 yo F)Acc No.[id number]:05/15/2023 Patient: Jeronimo ALFREDO Sandra [address] :2000 A ge:22 Y S ex:Female Phone: Address:[place], [address] Subjective: * Chief Complaints: * E MR-Edwardo * Medical History: * Surgical History: * Hospitalization/Major Diagno stic Procedure: * Social History: M igrated Social History: M igrated Social History: :: Shoe Size: :: note : 7.5. * Medications: Objective: * Vitals: * Physical Examination: Assessment: Plan: * Treatment: * Procedure Codes: * * Date:
--- OUTSIDE RECORDS SUMMARY | 2024-10-05 07:49 | XMS_ITS | Referral Summary ---
Author Organization [facility] Address [address] [place] [address] Care Team Providers Care Ic Engineer Name Role Phone Brittney Sepulveda MD Primary Care Provider [phone] Source Comments [facility],non-owned Affiliates and Associated Physician Practices is amultiple site organization consisting of ambulatory clinics and hospital sitesin [place], [place], [place] and [place]. This disclosure is being madepursuant to the Care Everywhere program and may not contain all information available regarding this patient. Last updated 18.[facility] Allergies No known active allergies Medications * [...] PPD 09/02/2003 TDAP (7yrs+) 03/09/2014 VARICELLA 02/08/2008,12/16/2003 Social History Tobacco Use Types Packs/Day Years [...] 12/01/2018 4:01 PM CDT Plan of Treatment Not on file Goals Goal Patient Goal Type Associated Problems [...] Where can I go for more information? [employer] ( ) www.aap.org, HealthyChildren.org www.healthychildren.org Website and free downloadable gosia for smartphones: http://www.Lanzaloya.com.NPS/ Use safety retraint in car Lifestyle Not on track( 017 11:23 AM CDT) Lashell Gaines RN Care Teams Ic Engineer Relationship Specialty Start Date End Date Brittney Sepulveda MD PCP - General Family Medicine 08/23/16
--- OUTSIDE RECORDS SUMMARY | 2024-10-05 07:49 | XMS_ITS | Patient Health Summary ---
Author Organization [facility] Address [address] [place] [address] Care Team Providers Care Spanish Professor Name Role Phone Brittney Sepulveda MD Primary Care Provider [phone] Note from [facility],non-owned Affiliates and Associated Physician Practices is amultiple site organization consisting of ambulatory clinics and hospital sitesin [place], [place] and [place]. This disclosure is being madepursuant to the Care Everywhere program and may not contain all information available regarding this patient. Last updated 18.[facility] Allergies No known active allergies Medications * Be aware that medications may not be up to date on this document. Alwaysverify current medications with the patient. * hydrOXYzine hcl (ATARAX) 10 MG tablet Take 10 mg by mouth 4 times daily as needed for Itching * citalopram (CELEXA) 10 MG tablet Take 10 mg by mouth once daily * levonorgestrel-ethinyl estradiol (VIENVA) 0.1-20 MG-MCG tablet Take 1 tablet by mouth once daily Active Problems Problem Noted Date Diagnosed Date BMI (body mass index), pediatric, 95-99% for age 0803/09/2014 Immunizations * DTaP VACCINE IM (6wk-6yrs)(Given 02/08/2008, 03/19/2004, 03/16/2003, 01/12/2003, 2002) * HEP B VACCINE, PED/ADOL(Given 06/07/2003, 2002, 2002) * HIB BOOSTER(Given 12/16/2003, 03/16/2003, 01/12/2003, 2002) * MENINGOCOCCAL CONJUGATE (MCV4P)(Given 03/09/2014) * MMR(Given 02/08/2008, 09/02/2003) * PNEUMOCOCCAL CONJ, PEDS(Given 09/02/2003, 03/16/2003, 01/12/2003, 2002) * POLIO IPV(Given 02/08/2008, 03/19/2004, 01/12/2003, 2002) * PPD(Given 09/02/2003) * TDAP (7yrs+)(Given 03/09/2014) * VARICELLA(Given 02/08/2008, 12/16/2003) Social History Tobacco Use Types Packs/Day Years [...] Mass Index 24.8 12/01/2018 4:01 PM CDT Procedures * STREP A SCREEN - POINT OF CARE (AMB) STL(Performed 12/01/2018) Performed for Acute pharyngitis, unspecified etiology * LIPID PROFILE(Performed 03/16/2014) Performed for BMI (body mass index), pediatric, 95-99% for age * GLUCOSE(Performed 03/16/2014) Performed for BMI (body mass index), pediatric, 95-99% for age * CULTURE STREP GROUP A(Performed 04/04/2012) Performed for Acute pharyngitis * STREP A SCREEN - POINT OF CARE (AMB)(Performed 04/04/2012) Performed for Acute pharyngitis * CBC W AUTO DIFFERENTIAL(Performed 01/02/2012) * BORDETELLA PERTUSSIS AB IGA/IGG PNL W REFLX(Performed 01/02/2012) * BORDETELLA PERTUSSIS AB IGG IMMUNOBLT FLXD(Performed 01/02/2012) * BORDETELLA PERTUSSIS AB IGA IMMUNOBLT FLXD(Performed 01/02/2012) * CULTURE BORDETELLA PERTUSSIS+PCR PNL(Performed 12/17/2011) Performed for Chronic cough * XR AIRWAY AP AND LAT(Performed 12/17/2011) Performed for Chronic cough * XR CHEST 2VW(Performed 12/17/2011) Performed for Chronic cough * CULTURE STREP GROUP A(Performed 11/02/2011) Performed for Acute pharyngitis * STREP A SCREEN - POINT OF CARE (AMB)(Performed 11/02/2011) Performed for Acute pharyngitis * CULTURE THROAT(Performed 01/11/2011) * STREP A SCREEN - POINT OF CARE (AMB)(Performed 01/11/2011) Performed for Acute pharyngitis * STREP A SCREEN - POINT OF CARE (AMB)(Performed 05/27/2010) * LAB RESULTS ORDER(Performed 08/28/2009) * CULTURE AEROBIC+GRAM STAIN(Performed 08/25/2009) Performed for Acute Pharyngitis * STREP A SCREEN - POINT OF CARE (AMB)(Performed 08/25/2009) Performed for Acute Pharyngitis Results * STREP A SCREEN (12/01/2018) Strep A Rapid POCT Negative Negative Strep A Internal Control Present Lot # [id number] Expiration Date 05/24/20 Throat ENTIRE THROAT (SURFACE REGION OF NECK) / Unknown 12/01/2018 [place] PEDIATRIC SPEECH LANGUAGE PATHOLOGIST-SOCIAL SERVICE COORDINATOR LAB - POINT OF CA RE ORDERABLES * GLUCOSE (03/16/2014 10:50 AM CDT) Glucose 70 65 - 99 mg/dL [facility] INSURANCE BILL Blood specimen (specimen) BLOOD SPECIMEN / Unknown 03/16/2014 10:50 AM CDT 03/16/2014 1:07 PM CDT Narrative Resulting Agency Comment [facility] [address] [phone] Karen Garber MD LAB - CHEMISTRY NAGI ANTONY [facility] INSURANCE BILL * (ABNORMAL) LIPID PROFILE (LIPID PANEL) (03/16/2014 10:50 AM CDT) Cholesterol 151 100 - 169 mg/dL [facility] INSURANCE BILL Triglycerides 203(H) 0 - 89 mg/dL [facility] INSURANCE BILL HDL Cholesterol 37(L) >39 mg/dL [facility] INSURANCE BILL Comment: According to ATP-III Guidelines, HDL-C >59 mg/dL is considered a negative risk factor for CHD. VLDL Calculated 41(H) 5 - 40 mg/dL [facility] INSURANCE BILL LDL Calculated 73 0 - 109 mg/dL [facility] INSURANCE BILL Comment NOT NEEDED [facility] INSURANCE BILL Comment:Ancillary determined the test is not needed Blood specimen (specimen) BLOOD SPECIMEN / Unknown 03/16/2014 10:50 AM CDT 03/16/2014 1:07 PM CDT Narrative Resulting Agency Comment [address] [phone] Karen Garber MD LAB - CHEMISTRY NAGI ANTONY [facility] Organization Address City/State/ZIP Co de Phone Number [facility] INSURANCE BILL * CULTURE STREP GROUP A (04/04/2012 10:33 AM CDT) Only the most recent of2 resultswithin the time period is included. Beta-Strep Culture, Group A Only [facility] ACCOUNT BILL Comment: Beta-hemolytic colonies, not group A Streptococcus isolated. Penicillin and ampicillin are drugs of choice for treatment of beta-hemolytic streptococcal infections. Susceptibility testing of penicillins and other beta-lactam agents approved by the FDA for treatment of beta-hemolytic streptococcal infections need not be performed routinely because nonsusceptible isolates are extremely rare in any beta-hemolytic streptococcus and have not been reported for Streptococcus pyogenes (group A). (CLSI 2011) Miscellaneous samples (specimen) ENTIRE THROAT (SURFACE REGION OF NECK) / Unknown 04/04/2012 10:33 AM CDT 04/04/2012 8:49 PM CDT Narrative Resulting Agency Comment [address] [phone] Vicky Flores MD LAB - MICROBIOLOGY O RDERABLES [facility] ACCOUNT BILL * STREP A SCREEN - POINT OF CARE (AMB) (04/04/2012 10:27 AM CDT) Only the most recent of5 resultswithin the time period is included. Pathologist [facility] Strep A Rapid POCT Negative Negative Strep A Internal Control NEGATIVE - POSITIVE Throat swab (specimen) ENTIRE THROAT (SURFACE REGION OF NECK) / Unknown Vicky Flores MD LAB - POINT OF CARE ORDERABLES * (ABNORMAL) CBC W AUTO DIFFERENTIAL (01/02/2012 5:17 PM CDT) [facility] WBC 8.9 4.5 - 14.5 x10^9/L 01/02/2012 5:54 PM CDT [facility] RBC 4.68 4.00 - 5.20 x10^12/L 01/02/2012 5:54 PM CDT [facility] Hemoglobin 13.6 11.5 - 15.5 g/dL 01/02/2012 5:54 PM CDT [facility] Hematocrit 38.7 35.0 - 45.0 % 01/02/2012 5:54 PM CDT [facility] MCV 82.7 77.0 - 95.0 fl 01/02/2012 5:54 PM CDT [facility] MCH 29.1 25.0 - 33.0 pg 01/02/2012 5:54 PM CDT [facility] MCHC 35.1 31.0 - 37.0 gm/dL 01/02/2012 5:54 PM CDT [facility] Immature Platelet Fraction 2.7 1.1 - 6.2 % 01/02/2012 5:54 PM CDT [facility] RDW-CV 12.7 11.5 - 15.0 % 01/02/2012 5:54 PM CDT [facility] MPV 9.6(H) 6.0 - 9.5 fl 01/02/2012 5:54 PM CDT [facility] Neutrophils % 35 24 - 66 % 01/02/2012 5:54 PM CDT [facility] Lymphocytes % 54 22 - 61 % 01/02/2012 5:54 PM CDT [facility] Monocytes % 8 3 - 15 % 01/02/2012 5:54 PM CDT [facility] Eosinophils % 3 0 - 10 % 01/02/2012 5:54 PM CDT [facility] Basophils % 0 0 - 2 % 01/02/2012 5:54 PM CDT [facility] Immature Granulocytes 0 0 - 1 % 01/02/2012 5:54 PM CDT [facility] Neutrophil Absolute 3.10 2.01 - 7.14 x10^9/L 01/02/2012 5:54 PM CDT [facility] Lymphocytes Absolute 4.80(H) 1.07 - 3.94 x10^9/L 01/02/2012 5:54 PM CDT [facility] Monocytes Absolute 0.68 0.26 - 1.07 x10^9/L 01/02/2012 5:54 PM CDT [facility] Eosinophils Absolute 0.28 0 - 0.47 x10^9/L 01/02/2012 5:54 PM CDT [facility] Basophils Absolute 0.04 0 - 0.08 x10^9/L 01/02/2012 5:54 PM CDT [facility] Immature Granulocytes Absolute 0.01 0.00 - 0.06 x10^9/L 01/02/2012 5:54 PM CDT [facility] nRBC Auto 0 01/02/2012 5:54 PM CDT [facility] Platelet Count 280 100 - 400 x10^9/L 01/02/2012 5:54 PM CDT [facility] Blood specimen (specimen) BLOOD SPECIMEN / Unknown 01/02/2012 5:17 PM CDT 01/02/2012 5:38 PM CDT Kristine Rider MD LAB - HEMATOLOGY ORD ERABLES [facility] [address] [place] [address] * (ABNORMAL) BORDETELLA PERTUSSIS AB IGA IGG PNL W REFLX (01/02/2012 5:16 PM CDT) Bordetella pertussis Antibody IgG 6.6(H) <=2.4 U/mL 01/06/2012 12:11 PM CDT [facility] Comment: Bordetella pertussis Immunoblot to follow. This test was developed and its performance characteristics determined by [employer]. The U.S. Food and Drug Administration has not approved or cleared this test; however, FDA clearance or approval is not currently required for clinical use. The results are not intended to be used as the sole means for clinical diagnosis or patient management decisions. Bordetella pertussis Antibody IgA 1.5(H) <=1.1 U/mL 01/06/2012 12:11 PM CDT [facility] [employer] [facility] Comment: Bordetella pertussis Immunoblot to follow. This test was developed and its performance characteristics determined by [employer]. The U.S. Food and Drug Administration has not approved or cleared this test; however, FDA clearance or approval is not currently required for clinical use. The results are not intended to be used as the sole means for clinical diagnosis or patient management decisions. Blood specimen (specimen) BLOOD SPECIMEN / Unknown 01/02/2012 5:16 PM CDT 01/02/2012 5:43 PM CDT Kristine Rider MD LAB - SEROLOGY ORDER MINI [facility] [address] [place] [address] * (ABNORMAL) BORDETELLA PERTUSSIS AB IGG IMMUNOBLT FLXD (01/02/2012 5:16 PM CDT) [facility] B Pertussis Antibody IgG Immunoblot See Note(A) 01/07/2012 12:49 AM CDT [facility] [employer] Comment: IgG antibodies against Bordetella FHA and PT detected. The Immunoblot banding pattern suggests a recent infection with Bordetella pertussis. This test was developed and its performance characteristics determined by [employer]. The U.S. Food and Drug Administration has not approved or cleared this test; however, FDA clearance or approval is not currently required for clinical use. The results are not intended to be used as the sole means for clinical diagnosis or patient management decisions. Blood specimen (specimen) BLOOD SPECIMEN / Unknown 01/02/2012 5:16 PM CDT 01/02/2012 5:43 PM CDT Kristine Rider MD LAB - SEROLOGY ORDER MINI [facility] [address] [place] [address] * (ABNORMAL) BORDETELLA PERTUSSIS AB IGA IMMUNOBLT FLXD (01/02/2012 5:16 PM CDT) B Pertussis Antibody IgA Immunoblot See Note(A) Negative 01/07/2012 12:49 AM CDT [facility] Comment: IgA antibodies against Bordetella FHA and PT detected, which may suggest recent infection with Bordetella pertussis. This test was developed and its performance characteristics determined by [employer]. The U.S. Food and Drug Administration has not approved or cleared this test; however, FDA clearance or approval is not currently required for clinical use. The results are not intended to be used as the sole means for clinical diagnosis or patient management decisions. Blood specimen (specimen) BLOOD SPECIMEN / Unknown 01/02/2012 5:16 PM CDT 01/02/2012 5:43 PM CDT Kristine Rider MD LAB - SEROLOGY ORDER MINI Performing Organization Address [facility] de Phone Number [facility] [address] [place] [address] * BORDETELLA PERTUSSIS CULTURE+PCR PNL (12/17/2011 10:38 AM CDT) NASOPHARYNGEAL SWAB / Unknown 12/17/2011 10:38 AM CDT Karen Garber MD LAB - MICROBIOLOGY O RDLENNIE Performing Organization Address [facility] de Phone Number NONSSM RESULT SCAN * XR AIRWAY AP AND LAT (12/17/2011) Anatomical Region Laterality Modality Head Other Karen Garber MD DIAGNOSTIC IMAGING O CRISTY * XR CHEST PA AND LATERAL (CXR) (12/17/2011) Anatomical Region Laterality Modality Chest Other Karen Garber MD DIAGNOSTIC IMAGING O CRISTY * CULTURE THROAT (01/11/2011 10:37 AM CDT) Upper Respiratory Culture Final report [facility] INSURANCE BILL Result 1 [facility] INSURANCE BILL Comment:Routine respiratory umang 01/11/2011 10:3 7 AM CDT 01/11/2011 9:33 PM CDT Narrative Resulting Agency Comment [facility] [phone] Vicky Flores MD LAB - MICROBIOLOGY O RDERABLES Performing Organization Address [facility]/ZIP Co de Phone Number [facility] INSURANCE BILL * LAB RESULTS ORDER (08/28/2009) Vicky Flores MD LAB - THERAPEUTIC DR YOGESH MONITORING ORDERABLES * CULTURE ROUTINE (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 No penicillin resistance has been described among these organisms and surveillance for emerging resistance is not recommended. (Floyd, DF. Clinical Microbiology Newsletter, Jul. 1993; OLIVA Chen, et al. Diagnostic Microbiology and Infectious Disease, December,.) ENTIRE PHARYNX / Unknown 08/25/2009 10:37 AM [employer]ER [employer] 08/25/2009 10:21 PM [employer] Narrative Resulting Agency Comment [facility] [phone] Vicky Flores MD LAB - MICROBIOLOGY O RDERABLES [facility] ACCOUNT BILL Care Teams Spanish Professor Relationship Specialty Start Date End Date Brittney Sepulveda MD PCP - General Family Medicine 08/23/16
--- OUTSIDE RECORDS SUMMARY | 2024-10-05 07:50 | XMS_ITS ---
Author Organization [facility] Address [address] [place] [address] Care Team Providers Care Procurement Professional Name Role Phone zzzzMigration, zzzzProvider Unavailable Unav ailable REASON FOR VISIT EMR-Edwardo Encounters Encounter Location Date Provider Diagnosis [facility] [address] [place] [address] 05/14/2023 zzzzProvider zzzzMigration Plan Of Treatment No Information Progress Notes * Sandra FOSTER EDOB:2000 (24 yo F)Acc No.[id number]:05/14/2023 Patient: Jeronimo ALFREDO Sandra Ledezma :2000 A ge:22 Y S ex:Female Phone: Address:[place], [address] Subjective: * Chief Complaints: * E MR-Edwardo * Medical History: * Surgical History: * Hospitalization/Major Diagno stic Procedure: * Medications: Objective: * Vitals: * Physical Examination: Assessment: Plan: * Treatment: * Procedure Codes: * * Date:
[2024-10-05 07:56] VITALS: BP 119/67; PULSE 81; RESP 16; TEMP 36.9; O2SAT 94
[2024-10-05 08:14] LABS: Basophils Absolute Auto 0.1 K/mm3 (0.0-0.1); Basophils Percent Auto 0.6 % (0.2-1.2); Eosinophils Percent Auto 0.2 % (0-4.4); Hematocrit 40.1 % (37.0-47.0); Hemoglobin 13.7 g/dL (12.0-15.0); Immature Granulocyte Absolute 0.03 K/mm3 (0.00-0.031); Immature Granulocyte Percent A 0.3 % (0-0.5); Lymphocytes Absolute Auto 1.44 K/mm3 (0.9-3.2); Lymphocytes Percent Auto 16.5 % (18.3-44.2); Mean Corpuscular HGB Conc 34.2 g/dl (32-36); Mean Corpuscular Hemoglobin 30.6 pg (26-34); Mean Corpuscular Volume 89.5 fl (80-100); Mean Platelet Volume 10.1 fl (7.4-10.4); Monocytes Absolute Auto 0.3 K/mm3 (0.1-0.6); Monocytes Percent Auto 2.9 % (2.6-8.5); Neutrophils Absolute Auto 6.9 K/mm3 (1.3-6.7); Neutrophils Percent Auto 79.5 % (45.5-73.1); Platelet Count Result 285 k/mm3 (150-375); Red Blood Count 4.48 M/mm3 (4.2-5.4); White Blood Count 8.7 K/mm3 (4.5-10.0)
[2024-10-05 08:16] VITALS: BP 102/67; PULSE 72; RESP 16; O2SAT 96
[2024-10-05 08:22] LABS: Alanine Aminotransferase 14 U/L (6-35); Albumin Level 4.3 g/dL (3.5-5.1); Alkaline Phosphatase 78 U/L (38-126); Anion Gap 11 mmol/L (4-12); Aspartate Amino Transferase 19 U/L (14-36); Bilirubin,Total 0.5 mg/dL (0.2-1.3); Blood Urea Nitrogen 9 mg/dL (7-17); Calcium 9.4 mg/dL (8.4-10.2); Carbon Dioxide 22 mmol/L (22-30); Chloride 107 mmol/L (98-107); Estimated CRCL calculation 94 ml/min; Estimated Glomerular Filt Rate > 60; Glucose 133 mg/dL (65-110); Lipase 142 U/L (23-300); Potassium 3.9 mmol/L (3.4-5.0); Sodium 140 mmol/L (137-145)
[2024-10-05 08:46] VITALS: BP 104/64; PULSE 70; RESP 14; TEMP 36.6; O2SAT 98
[2024-10-05] MEDS: ONDANSETRON INJ 4 MG/2 ML VIAL IV PUSH (09:16)
[2024-10-05] MEDS: SODIUM CHLORIDE 0.9% IV 1,000 ML 999 ML IV CONT (09:16)
--- OUTSIDE RECORDS SUMMARY | 2024-10-05 09:26 | XMS_ITS | Referral Summary ---
Author Organization [facility] Address [address] [place] [address] Care Team Providers Care Accounting Policy Consultant Name Role Phone Brittney Sepulveda MD Primary Care Provider [phone] Source Comments [facility],non-owned Affiliates and Associated Physician Practices is amultiple site organization consisting of ambulatory clinics and hospital sitesin [place], [place], [place] and [place]. This disclosure is being madepursuant to the Care Everywhere program and may not contain all information available regarding this patient. Last updated 18.[facility] Allergies No known active allergies Medications * [...] Where can I go for more information? [employer] ( ) www.aap.org, HealthyChildren.org www.healthychildren.org Website and free downloadable gosia for smartphones: http://www.Auto Secure.Loudr/ Use safety retraint in car Lifestyle Not on track( 017 11:23 AM CDT) Lashell Gaines RN Care Teams Accounting Policy Consultant Relationship Specialty Start Date End Date Brittney Sepulveda MD PCP - General Family Medicine 08/23/16
--- OUTSIDE RECORDS SUMMARY | 2024-10-05 09:26 | XMS_ITS | Clinical Summary ---
Author Organization [facility] Address [address] [place] [address] Care Team Providers Care Body Presser Name Role Phone Brittney Sepulveda MD Primary Care Provider [phone] Source Comments [facility],non-owned Affiliates and Associated Physician Practices is amultiple site organization consisting of ambulatory clinics and hospital sitesin [place], [place], [place] and [place]. This disclosure is being madepursuant to the Care Everywhere program and may not contain all information available regarding this patient. Last updated 18.[facility] Allergies No known active allergies Medications * [...] Where can I go for more information? [employer] ( ) www.aap.org, HealthyChildren.org www.healthychildren.org Website and free downloadable gosia for smartphones: http://www.Kitani/ Use safety retraint in car Lifestyle Not on track( 017 11:23 AM CDT) Lashell Gaines RN Care Teams Body Presser Relationship Specialty Start Date End Date Brittney Sepulveda MD PCP - General Family Medicine 08/23/16
--- OUTSIDE RECORDS SUMMARY | 2024-10-05 09:26 | XMS_ITS | Patient Health Summary ---
Author Organization [facility] Address [address] [place] [address] Care Team Providers Care Employee Communications Manager Name Role Phone Brittney Sepulveda MD Primary Care Provider [phone] Note from [facility],non-owned Affiliates and Associated Physician Practices is amultiple site organization consisting of ambulatory clinics and hospital sitesin [place], [place], [place] and [place]. This disclosure is being madepursuant to the Care Everywhere program and may not contain all information available regarding this patient. Last updated 18.[facility] [employer] Allergies No known active allergies Medications * [...] Strep A Internal Control Present Lot # [id number] Expiration Date 05/24/20 Throat ENTIRE THROAT (SURFACE REGION OF NECK) / Unknown 12/01/2018 Love Lea DATA WAREHOUSING MANAGER-CLOSET BUILDER LAB - POINT OF CA RE ORDERABLES * GLUCOSE (03/16/2014 10:50 AM CDT) Glucose 70 65 - 99 mg/dL [facility] INSURANCE BILL Blood specimen (specimen) BLOOD SPECIMEN / Unknown 03/16/2014 10:50 AM CDT 03/16/2014 1:07 PM CDT Narrative Resulting Agency Comment [facility] [address] [phone] Karen Garber MD LAB - CHEMISTRY NAGI [...] 1:07 PM CDT Narrative Resulting Agency Comment [address] [phone] Karen Garber MD LAB - CHEMISTRY NAGI ANTONY [facility] Organization Address City/State/ZIP Co de Phone Number [...] 8:49 PM CDT Narrative Resulting Agency Comment [address] [phone] Vicky Flores MD LAB - MICROBIOLOGY O RDERABLES [facility] ACCOUNT BILL * STREP A SCREEN - POINT OF CARE (AMB) (04/04/2012 10:27 AM CDT) Only the most recent of5 resultswithin the time period is included. Pathologist [facility] Strep A Rapid POCT Negative Negative Strep A Internal Control NEGATIVE - POSITIVE Throat swab (specimen) ENTIRE THROAT (SURFACE REGION OF NECK) / Unknown Vicky Flores MD LAB - POINT OF CARE ORDERABLES * (ABNORMAL) CBC W AUTO DIFFERENTIAL (01/02/2012 5:17 PM CDT) [facility] WBC 8.9 4.5 - 14.5 x10^9/L 01/02/2012 5:54 PM CDT [facility] RBC 4.68 4.00 - 5.20 x10^12/L 01/02/2012 5:54 PM CDT [facility] Hemoglobin 13.6 11.5 - 15.5 g/dL 01/02/2012 5:54 PM CDT [facility] Hematocrit 38.7 35.0 - 45.0 % 01/02/2012 5:54 PM CDT [facility] MCV 82.7 77.0 - 95.0 fl 01/02/2012 5:54 PM CDT [facility] MCH 29.1 25.0 - 33.0 pg 01/02/2012 5:54 PM CDT [facility] MCHC 35.1 31.0 - 37.0 gm/dL 01/02/2012 5:54 PM CDT [facility] Immature Platelet Fraction 2.7 1.1 - 6.2 % 01/02/2012 5:54 PM CDT [facility] RDW-CV 12.7 11.5 - 15.0 % 01/02/2012 5:54 PM CDT [facility] MPV 9.6(H) 6.0 - 9.5 fl 01/02/2012 5:54 PM CDT [facility] Neutrophils % 35 24 - 66 % 01/02/2012 5:54 PM CDT [facility] Lymphocytes % 54 22 - 61 % 01/02/2012 5:54 PM CDT [facility] Monocytes % 8 3 - 15 % 01/02/2012 5:54 PM CDT [facility] Eosinophils % 3 0 - 10 % 01/02/2012 5:54 PM CDT [facility] Basophils % 0 0 - 2 % 01/02/2012 5:54 PM CDT [facility] Immature Granulocytes 0 0 - 1 % 01/02/2012 5:54 PM CDT [facility] Neutrophil Absolute 3.10 2.01 - 7.14 x10^9/L 01/02/2012 5:54 PM CDT [facility] Lymphocytes Absolute 4.80(H) 1.07 - 3.94 x10^9/L 01/02/2012 5:54 PM CDT [facility] Monocytes Absolute 0.68 0.26 - 1.07 x10^9/L 01/02/2012 5:54 PM CDT [facility] Eosinophils Absolute 0.28 0 - 0.47 x10^9/L 01/02/2012 5:54 PM CDT [facility] Basophils Absolute 0.04 0 - 0.08 x10^9/L 01/02/2012 5:54 PM CDT [facility] Immature Granulocytes Absolute 0.01 0.00 - 0.06 x10^9/L 01/02/2012 5:54 PM CDT [facility] nRBC Auto 0 01/02/2012 5:54 PM CDT [facility] Platelet Count 280 100 - 400 x10^9/L 01/02/2012 5:54 PM CDT [facility] Blood specimen (specimen) BLOOD SPECIMEN / Unknown 01/02/2012 5:17 PM CDT 01/02/2012 5:38 PM CDT Kristine Rider MD LAB - HEMATOLOGY ORD ERABLES [facility] [address] [place] [address] * (ABNORMAL) BORDETELLA PERTUSSIS AB IGA IGG PNL W REFLX (01/02/2012 5:16 PM CDT) Bordetella pertussis Antibody IgG 6.6(H) <=2.4 U/mL 01/06/2012 12:11 PM CDT [facility] Comment: Bordetella pertussis Immunoblot to follow. This test was developed and its performance characteristics determined by [employer]. The U.S. Food and Drug Administration has not approved or cleared this test; however, FDA clearance or approval is not currently required for clinical use. The results are not intended to be used as the sole means for clinical diagnosis or patient management decisions. Bordetella pertussis Antibody IgA 1.5(H) <=1.1 U/mL 01/06/2012 12:11 PM CDT [facility] Comment: Bordetella pertussis Immunoblot to follow. This test was developed and its performance characteristics determined by [facility]. The U.S. Food and Drug Administration has [...] Rider MD LAB - SEROLOGY ORDER MINI [facility] [address] [place] [address] * (ABNORMAL) BORDETELLA PERTUSSIS AB IGG IMMUNOBLT FLXD (01/02/2012 5:16 PM CDT) [facility] B Pertussis Antibody IgG Immunoblot See Note(A) 01/07/2012 12:49 AM CDT [facility] Comment: IgG antibodies against Bordetella FHA and PT detected. The Immunoblot banding pattern suggests a recent infection with Bordetella pertussis. This test was developed and its performance characteristics determined by [facility]. The U.S. Food and Drug Administration has [...] Rider MD LAB - SEROLOGY ORDER MINI [facility] [address] [place] [address] * (ABNORMAL) BORDETELLA PERTUSSIS AB IGA IMMUNOBLT FLXD (01/02/2012 5:16 PM CDT) B Pertussis Antibody IgA Immunoblot See Note(A) Negative 01/07/2012 12:49 AM CDT [facility] Comment: IgA antibodies against Bordetella FHA and PT detected, which may suggest recent infection with Bordetella pertussis. This test was developed and its performance characteristics determined by [facility]. The U.S. Food and Drug Administration has [...] - SEROLOGY ORDER MINI Performing Organization Address [facility] de Phone Number [facility] [address] [place] [address] * BORDETELLA PERTUSSIS CULTURE+PCR PNL (12/17/2011 10:38 AM CDT) NASOPHARYNGEAL SWAB / Unknown 12/17/2011 10:38 AM CDT Karen Garber MD LAB - MICROBIOLOGY O RDLENNIE Performing Organization Address [facility] de Phone Number [facility] RESULT SCAN * [...] 9:33 PM CDT Narrative Resulting Agency Comment [facility] [phone] Vicky Flores MD LAB - MICROBIOLOGY O RDERABLES Performing Organization Address [facility]/ZIP Co de Phone Number [facility] INSURANCE BILL * LAB RESULTS ORDER (08/28/2009) Vicky Flores MD LAB - THERAPEUTIC DR YOGESH MONITORING ORDERABLES * CULTURE ROUTINE (08/25/2009 10:[address]SULTANT) Aerobic Bacterial Culture Final report [facility] ACCOUNT [...] ENTIRE PHARYNX / Unknown 08/25/2009 10:[address] CONSULTANT 08/25/2009 10:[address] CONSULTANT Narrative Resulting Agency Comment [facility] [phone] Vicky Flores MD LAB - MICROBIOLOGY O RDERABLES [facility] ACCOUNT BILL Care Teams Employee Communications Manager Relationship Specialty Start Date End Date Brittney Sepulveda MD PCP - General Family Medicine 08/23/16
--- OUTSIDE RECORDS SUMMARY | 2024-10-05 09:26 | XMS_ITS | Clinical Summary ---
Author Organization 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
--- OUTSIDE RECORDS SUMMARY | 2024-10-05 09:26 | XMS_ITS | Referral Summary ---
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
[2024-10-05 09:30] VITALS: BP 106/72; PULSE 70; RESP 16; TEMP 36.6; O2SAT 100
--- NOTE | 2024-10-05 09:45 | ED.NAVMDI ---
HPI - Nausea/Vomiting/Diarrhea General Chief complaint: Nausea/Vomiting/Diarrhea Stated complaint: N/V X2 days Time Seen by Provider: 10/05/24 07:53 Source: patient Mode of arrival: ambulatory Limitations: no limitations History of Present Illness HPI Narrative: 24-year-old otherwise healthy here with a complaint of nausea ,vomiting occasional abdominal pain for past 2 days patient states this morning she was feeling extremely weak and dehydrated. She denies any diarrhea. No other family members sick. MD elicited complaint: nausea and vomiting Onset (ago): day(s) (2) Location of pain: none Exacerbating factors: none Relieving factors: none Related Data Home Medications ?Medication ?Instructions ?Recorded ?Confirmed ?Last Taken ?Type norethindrone 1 mg-ethinyl tablet PO DAILY 05/23/23 05/30/24 Unknown History estradiol 20 mcg (21)-iron 75 mg (7) tablet (Blisovi Fe 08/13 (28)) Allergies Allergy/AdvReac Type Severity Reaction Status Date / Time No Known Drug Allergies Allergy Unknown Unknown Verified 10/05/24 07:46 Review of Systems Review of Systems: All systems reviewed & are unremarkable except as noted in HPI and below Constitutional: Constitutional: Reports no additional constitutional complaints Eyes: Eyes: Reports no additional eye complaints ENT: Reports system reviewed and no additional complaints, except as documented Cardiovascular: Cardiovascular: Reports no additional cardiovascular complaints Respiratory: Respiratory: Reports no additional respiratory complaints Gastrointestinal: Gastrointestinal: Reports as per HPI Musculoskeletal: Musculoskeletal: Reports no additional musculoskeletal complaints Integumentary/Breasts: Skin/Breast: Reports system reviewed and no additional complaints, except as docu PMFSH Past Medical History Medical History B12 deficiency Fatigue Anemia Nausea and vomiting Vitamin D deficiency ROSALIE (generalized anxiety disorder) Behavioral insomnia of childhood, unspecified type Family History Family History Father Family history of migraine headaches Hypertension Family history of hypercholesterolemia Grandparent Hypertension Family history of alcoholism Family history of malignant neoplasm of ovary Mother Family history of elevated blood lipids Family history of hypercholesterolemia Other Cerebrovascular accident Diabetes mellitus Social History Social History Smoking status: Never smoker Alcohol intake: never Substance use type: marijuana Exam Narrative: GENERAL: Well-appearing, well-nourished, and in no acute distress. HEAD: Normocephalic, atraumatic. EYES: PERRLA and EOMI. ENT: Nares clear, no rhinorrhea or epistaxis. Mucous membranes moist. NECK: Supple. CHEST: Clear to auscultation. No respiratory distress. HEART: Regular rate and rhythm. No murmur heard. Normal peripheral pulses. ABDOMEN: Soft, nontender, nondistended, normal active bowel sounds. EXTREMITIES: Normal range of motion. No edema. SKIN: Warm, dry, no rash. NEURO: No focal deficits. Alert and oriented x3. PSYCH: Normal mood and affect. Course Course Emergency Course: Patient was given 1 L of normal saline, Zofran. She did not have any further episodes of nausea or vomiting. Informed her about her lab work,. She is feeling much better. Advised her to drink more fluids as tolerated. Vital Signs Vital signs: Vital Signs Temperature 36.9 C 10/05/24 07:56 Pulse Rate 81 10/05/24 07:56 Respiratory Rate 16 10/05/24 07:56 Blood Pressure 119/67 10/05/24 07:56 Pulse Oximetry 94 10/05/24 07:56 Oxygen Delivery Room Air 10/05/24 07:56 Temperature 36.9 C 10/05/24 07:56 Pulse Rate 81 10/05/24 07:56 Respiratory Rate 16 10/05/24 07:56 Blood Pressure 119/67 10/05/24 07:56 Pulse Oximetry 94 10/05/24 07:56 Oxygen Delivery Room Air 10/05/24 07:56 MDM - Nausea/Vomiting/Diarrhea Lab Data 10/05/24 08:04 10/05/24 08:04 Labs: Lab Results 10/05/24 10/05/24 Range/Units 08:04 08:12 WBC 8.7 (4.5-10.0) K/mm3 RBC 4.48 (4.2-5.4) M/mm3 Hgb 13.7 (12.0-15.0) g/dL Hct 40.1 (37.0-47.0) % MCV 89.5 (80-100) fl MCH 30.6 (26-34) pg MCHC 34.2 (32-36) g/dl RDW 12.0 (11.5-14.5) % Plt Count 285 (150-375) k/mm3 MPV 10.1 (7.4-10.4) fl Immature Gran % (Auto) 0.3 (0-0.5) % Neut % (Auto) 79.5 H (45.5-73.1) % Lymph % (Auto) 16.5 L (18.3-44.2) % [place] % (Auto) 2.9 (2.6-8.5) % Eos % (Auto) 0.2 (0-4.4) % Baso % (Auto) 0.6 (0.2-1.2) % Lymph # (Auto) 1.44 (0.9-3.2) K/mm3 [place] # (Auto) 0.3 (0.1-0.6) K/mm3 Eos # (Auto) 0.0 (0-0.3) K/mm3 Baso # (Auto) 0.1 (0.0-0.1) K/mm3 Abs Immat Gran (auto) 0.03 (0.00-0.031) K/mm3 Absolute Neuts (auto) 6.9 H (1.3-6.7) K/mm3 Absolute Nucleated RBC 0.000 (0.0-0.012) K/mm3 Nucleated RBC % 0.0 (0.0-0.2) % Sodium 140 (137-145) mmol/L Potassium 3.9 (3.4-5.0) mmol/L Chloride 107 (98-107) mmol/L Carbon Dioxide 22 (22-30) mmol/L Anion Gap 11 (4-12) mmol/L BUN 9 (7-17) mg/dL Creatinine 0.78 (0.7-1.0) mg/dL Estim Creat Clear Calc 94 ml/min Estimated GFR > 60 (59 - ) Glucose 133 H (65-110) mg/dL Calcium 9.4 (8.4-10.2) mg/dL Total Bilirubin 0.5 (0.2-1.3) mg/dL AST 19 (14-36) U/L ALT 14 (6-35) U/L Alkaline Phosphatase 78 (38-126) U/L Total Protein 7.0 (6.3-8.2) g/dL Albumin 4.3 (3.5-5.1) g/dL Lipase 142 (23-300) U/L Urine Color Pending Urine Appearance Pending Urine pH Pending Ur Specific [place] Pending Urine Protein Pending Urine Glucose (UA) Pending Urine Ketones Pending Ur Blood (Man) Pending Urine Nitrate Pending Urine Bilirubin Pending Urine Urobilinogen Pending Leukocyte Esterase Rfl Pending Discharge Plan Discharge Clinical Impression: Nausea & vomiting Qualifiers: Vomiting type: unspecified Qualified Code(s): R11.2 - Nausea with vomiting, unspecified Patient Disposition: Home, Self-Care Condition: Stable Instructions: Acute Nausea and Vomiting (ED) Patient Language: Lithuanian Prescriptions: New ondansetron 4 mg tablet,disintegrating 4 mg PO Q6-8H PRN (Reason: nausea and vomiting) Qty: 14 0RF No Action norethindrone-e.estradiol-iron [Blisovi Fe 08/13 (28)] 1 mg-20 mcg (21)/75 mg (7) tablet PO DAILY clonazepam [Klonopin] 0.5 mg tablet 0.5 mg PO DAILY PRN (Reason: panic) Qty: 30 1RF omeprazole 40 mg capsule,delayed release(DR/EC) 40 mg PO DAILY Qty: 30 1RF citalopram 40 mg tablet 40 mg PO DAILY Qty: 90 1RF Follow-up/Referrals: Denisha Nevarez MD [Primary Care Provider] - Time of Disposition: 09:50
[2024-10-05 09:50] LABS: Add Urine Microscopic? YES; Appearance Urine Clear (Clear); Bacteria Urine 3+ /hpf; Bilirubin Urine Negative (Negative); Blood Urine Negative (Negative); Color Urine Yellow (Yellow); Glucose Urine UA Negative (Negative); Ketones Urine Negative (Negative); Leukocyte Esterase Ur 1+ LEU/UL (Negative); Mucus Urine Present /lpf; Need Manual Microscopic Reviewed; Nitrate Urine Negative (Negative); Non Pathogenic Casts 0-2; Protein Urine Trace mg/dL (Negative); Specific Grav Ur 1.016 (1.001-1.035); Squamous Epithelial Cell Urine Few /hpf (Few); Urobilinogen Urine 0.2 mg/dL (<2.0); pH Urine 8.5 (5.0-9.0)
== END 2024-10-05 10:01 | disposition home or self-care (01) ==
PROVIDERS: Emergency Provider Family Medicine; PCP Family Medicine
DX: R11.2 Nausea with vomiting, unspecified (principal); E53.8 Deficiency of other specified B group vitamins; E55.9 Vitamin D deficiency, unspecified; F41.1 Generalized anxiety disorder
CPT/HCPCS: 36415; 80053; 81001; 83690; 85025; 87086; 96361; 96374; 99284; J2405; J7030

== ENCOUNTER 2024-10-25 07:08 | Emergency (ER) | payer OTHER, SELFPAY ==
--- OUTSIDE RECORDS SUMMARY | 2024-10-25 07:10 | XMS_ITS | Clinical Summary ---
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
--- OUTSIDE RECORDS SUMMARY | 2024-10-25 07:10 | XMS_ITS | Referral Summary ---
Author Organization [facility] Address [address] [place] [address] Care Team Providers Care Avian Keeper Name Role Phone Nathan Nevarez MD Primary Care Provider Allergies No known active allergies Social History Tobacco Use Types Packs/Day Years Used Date Smoking Tobacco: Never Assessed Personal Safety Answer Date Recorded Getting School Help Needed Not on file 02/03 Comments No Sex and Gender Information Value Date Recorded Sex Assigned at Not on file Legal Sex Female 11:35 PM REGULATORY SERVICES CONSULTANT Gender Identity Not on file Sexual Orientation [...] file Insurance [employer] GENER[employer] MD JUAN C [id number] Care Teams Avian Keeper Relationship Specialty Start Date End Date Nathan Nevarez MD PCP - General Family Practice 01/28/23
--- OUTSIDE RECORDS SUMMARY | 2024-10-25 07:10 | XMS_ITS | Data Portability ---
Author Organization [facility] Address [address] [place] [place] [address] Care Team Providers Care Car Electronics Installer Name Role Phone SIMRAN PYLE Primary Care Provider RUPERTO MALDONADO Primary Care Provider Assessment Encounter Date Assessment Date Assessment LastModified by Organization Details LastModified Time 07/02/2024 07/02/2024 Annual gynecological exam performed. Patient will come back in a year unless there are new symptoms. [email or web address] Not available 06/29/2024 11:31:12 Plan of Treatment Reminders Order Date Submit Date Provider Last Modified By Organization Details Last Modified Time Details Appointments None recorded. Lab pap, IG + reflex HPV if ASC-U - if hpv positive run subtyping 16, 18/[address] [facility] (Lab), [address], [place], [address], 4 16:43:14 urinalysis, dipstick 2023 024 [email or web address], [address], [address], [place], [address], 4 10:08:35 hsv (1+2) DNA, serum [address] [facility] (Lab), [address], [place], [address], 3 10:48:14 hsv-2 igg Ab, serum [address] [facility] (Lab), [address], [place], [address], 3 10:48:14 hsv-1 igg Ab, serum [address] [facility] (Lab), [address], [place], [address], 3 10:48:13 Referral None recorded. Procedures None recorded. Surgeries None recorded. Imaging None recorded. Medication Orders Nextstellis 3 mg-14.2 mg (28) tablet 2023 024 [facility], [facility] [place], [address], 4 09:19:46 valacyclovi r 500 mg tablet [address] [facility] [place], [address], 4 10:37:25 Macrobid 100 mg capsule 2023 024 [facility], [address] [place], [address], 4 12:20:44 Valtrex 1 gram tablet 2022 023 [facility], [address] [facility] [place] [place], [place], [id number], 3 12:24:14 Nextstellis 3 mg-14.2 mg (28) tablet [email or web address] [facility], [place], [address], 3 14:28:59 Macrobid 100 mg capsule [email or web address] [place] [address] [facility]15336, [address] , [place], [place], [id number], 4 11:31:28 Valtrex 1 gram tablet [address] [facility]65232, [address] [facility], [place], [place], [id number], 3 17:15:30 lidocaine HCl 2 % mucosal jelly [address] [facility]10190, [address] [facility], [place], [place], [id number], 3 12:07:57 Silvadene 1 % topical cream [address] [facility]06032, [address] [facility], [place], [place], [id number], 4 09:32:42 Nextstellis 3 mg-14.2 mg (28) tablet [address] [facility]85115, [address] [facility] [place], [place], [id number], 3 11:34:56 Patient TargetsNo targets recorded. Patient InstructionsNo instructions recorded. Reason for Referral None Reported. Results Created Date Observation Date Name Description Value Unit Range Abnormal Flag Note LastModifiedBy Organization Detail LastModifiedTime 06/13/2006/13/2023 CT/GC AND TRICH OMONA S VAGIN EZE (RRNA ), SWAB chlamydia trachomatis, PCR Negati ve negati ve Not Available [facility] (Lab) [address], [place], [address], 06/14/2023 12:38:47 06/13/2006/13/2023 CT/GC AND TRICH OMONA S VAGIN EZE (RRNA ), SWAB neisseria gonorrhoeae, PCR Negati ve negati ve Not Available [facility] (Lab) [address] [facility], [place], [address], 06/14/2023 12:38:47 06/13/20 23 06/13/2023 CT/GC AND TRICH OMONA S VAGIN EZE (RRNA ), SWAB trichomonas vaginalis ribosomal RNA (rrna) Negati ve negati ve Not Available [facility] (Lab) [address] [facility], [place], [address], 06/14/2023 12:38:47 06/13/20 23 06/13/2023 HERPE S SMPLE X VIRUS TYPE 1 SPECI FIC AB, IGG herpes simplex virus 1 IgG Positi ve negati ve abnormal Not Available [facility] (Lab) [address] [facility], [place], [address], 06/19/2023 10:48:13 06/13/20 23 06/13/2023 HERPE S SMPLE X VIRUS TYPE 1 SPECI FIC AB, IGG herpes simplex virus 1 IgG, quant 1.1 ai 0.0-0. [address] [facility] (Lab) [address] [facility], [place], [address], 06/19/2023 10:48:13 06/13/20 23 06/13/2023 HERPE S SIMPL EX VIRUS TYPE 2 SPECI FIC AB, IGG herpes simplex virus 2 IgG Negati ve negati ve Not Available [facility] (Lab) [address] [facility], [place], [address], 06/19/2023 10:48:14 06/13/20 23 06/13/2023 HERPE S SIMPL EX VIRUS TYPE 2 SPECI FIC AB, IGG herpes simples virus 2 IgG, quant <0.2 ai 0.0-0. [address] [facility] (Lab) [address] [place], [address], 06/19/2023 10:48:14 06/13/20 23 06/13/2023 HERPE S SIMPL EX VIRUS 1,2 DNA, RT PCR, BLOOD /BODY FLUID source SERUM Not Available [facility] (Lab) [address] [place] [facility] [place], [address], 06/19/2023 10:48:14 06/13/20 23 06/13/2023 HERPE S SIMPL EX VIRUS 1,2 DNA, RT PCR, BLOOD /BODY FLUID hsv 1 DNA DETECT ED abnormal Low Posit chikis. Resul t(s) confi rmed by john curtis. Not Available [facility] (Lab) [address] [facility], [place], [address], 06/19/2023 10:48:14 06/13/20 23 06/13/2023 HERPE S [...] for clini vadim purpo ses. Not Available [facility] (Lab) [address] [facility], [place], [address], 06/19/2023 10:48:14 04/27/20 24 04/27/2024 WOMEN 'S HEALT H SWAB PLUS, RO bacterial vaginosis (bv), tma Negati ve negati ve Not Available [facility] (Lab) [address] [facility], [place], [address], 05/05/2024 08:22:17 04/27/20 24 04/27/2024 WOMEN 'S HEALT H SWAB PLUS, RO nadiya species, tma Positi ve negati ve abnormal Not Available [facility] (Lab) [address] [facility], [place], [address], 05/05/2024 08:22:17 04/27/20 24 04/27/2024 WOMEN 'S HEALT H SWAB PLUS, RO nadiya glabrata, tma Negati ve negati ve Not Available [facility] (Lab) [address] [facility], [place], [address], 05/05/2024 08:22:17 04/27/20 24 04/27/2024 WOMEN 'S HEALT H SWAB PLUS, RO trichomonas vaginalis, tma Negati ve negati ve Not Available [facility] (Lab) [address] [facility], [place], [address], 05/05/2024 08:22:17 04/27/20 24 04/27/2024 [facility], RO chlamydia trachomatis, PCR Negati ve negati ve Not Available [facility] (Lab) [address] [facility] [address], [place], [address], 05/05/2024 08:22:17 04/27/20 24 04/27/2024 [facility] SWAB PLUS, RO neisseria gonorrhoeae, PCR [...] ded in this panel . Not Available [facility] (Lab) [address] [facility], [place], [address], 05/05/2024 08:22:17 04/27/20 24 04/27/2024 CULTU RE: URINE result report SEE RESULT S BELOW Test: Cultu re: Urine Speci men Sourc e: Urine - Clean Catch Speci men Type: Urine Speci men Date: 2023 0950 Resul t Date: 2023 0450 Resul t Statu s: Final resul t Abnor mal: No Resul ting Lab: [facility] [address] [facility] [address] Tel: CULTU RE ----- ----- ----- --- No growt h in 1 day (dete ction level of 10,00 0 colon ies / ml.) Not Available [facility] (Lab) [address] [facility], [place], [address], 05/05/2024 08:22:17 04/27/20 24 04/27/2024 CULTU RE: HSV/ VZV hsv culture/type Commen t abnormal Posit chikis for Herpe s simpl ex virus type- 1. Typin g was confi rmed by monoc lonal antib frantz micro scopi c immun ofluo resce nce. Not Available [facility] (Lab) [address] [facility], [place], [address], 05/05/2024 08:22:17 04/27/20 24 04/27/2024 CULTU RE: [...] Zoste r virus infec tion. Not Available [facility] (Lab) [address] [facility] [address], [place], [address], 05/05/2024 08:22:17 04/27/20 24 04/27/2024 urina lysis , dipst ick Leukocytes + Not Available [facility] [address], [place], [address], 04/27/2024 09:41:12 04/27/20 24 04/27/2024 urina lysis , dipst ick Protein + Not Available [facility] [address], [place], [address], 04/27/2024 09:41:12 04/27/20 24 04/27/2024 urina lysis , dipst ick pH 5 Not Available [facility] [address], [place], [address], 04/27/2024 09:41:12 04/27/2004/27/2024 urina lysis , dipst ick Blood ++ Not Available [facility] [address], [place], [address], 04/27/2024 09:41:12 04/27/20 24 04/27/2024 urina lysis , dipst ick Specific [place] 1.015 Not Available [facility] [address], [place], [address], 04/27/2024 09:41:12 07/02/20 24 07/02/2024 IMAGE GUIDE D PAP, REFLE X HPV IF ASCUS ONLY image guided Pap, reflex HPV ASCUS only SEE RESULT S BELOW CASE REPOR T: Cytol ogy Gynec ologi vadim Repor t Case: [id number] Autho riclay g Provi dwayne: Dermo dy, Aggie , ANP, EHS MANAGER Colle cted: 07/02 1051 Order ing Locat [...] Mami Tello, CT on 07/11 at 1538 VEGETABLE WASHER ----- ----- ----- ----- ----- ----- ----- [...] mireles, as clini alida villegas. Not Available [facility] (Lab) [address], [place], [address], 07/11/2024 16:43:14 Result Notes None recorded. Medical [...] Updated DateTime 05/05/2023 160.02 cm 87 % 94296.2 2 g 112 mm[Hg] 70 mm[Hg] [facility] 3 15:08:02 Date Recorded Body height Body mass index (BMI) Body mass index (BMI) Percentile per age and sex Body weight Systolic blood pressure Diastolic blood pressure Provider Name and Address Organization Details Last Updated DateTime 3 160.02 cm 27.5 kg/m2 87 % 86616.8 2 g 112 mm[Hg] 73 mm[Hg] [facility] 3 15:24:37 Date Recorded Body height Body mass index (BMI) Percentile per age and sex Body mass index (BMI) Body weight Systolic blood pressure Diastolic blood pressure Provider Name and Address Organization Details Last Updated DateTime 3 160.02 cm 88 % 28 kg/m2 10693.5 9 g 113 mm[Hg] 72 mm[Hg] [facility] 3 12:07:19 Date Recorded Body height Body mass index (BMI) Body weight Systolic blood pressure Diastolic blood pressure Provider Name and Address Organization Details Last Updated DateTime 04/27/2024 160.02 cm 31.4 kg/m2 53461.85 g 101 mm[Hg] 67 mm[Hg] [facility] 4 09:32:14 Date Recorded Body height Body mass index (BMI) Body weight Systolic blood pressure Diastolic blood pressure Provider Name and Address Organization Details Last Updated DateTime 07/02/2024 160.02 cm 19.7 kg/m2 79251.75 g 107 mm[Hg] 75 mm[Hg] [facility] 09:10:00 Social History Question Answer Notes LastModified by Organizat ion Details LastModified Time Tobacco Smoking Status Never Smoker Milagros [facility] 07/07/2023 12:05:09 Do You Have An Advance Directive? No [email or web address] Information n ot available 06/25/2021 What Is Your Level Of Alcohol Consumption? None Information not available 03/25/2021 Are You Blind Or Do You Have Difficulty Seeing? No [email or web address] Information n ot available 06/25/2021 What Is Your Level Of Caffeine Consumption? Heavy [email or web address] Information not available 07/02/2024 How Much Tobacco Do You Chew? None [email or web address] Information not available 06/25/2021 In The 14 Days Before Symptom Onset, Have You Had Close Contact With A Laboratory-confirm ed COVID-19 While That Case Was Ill? No [email or web address] Information n ot available 06/25/2021 In The 14 Days Before Symptom Onset, Have You Had Close Contact With A Person Who Is Under Investigation For COVID-19 While That Person Was Ill? No [email or web address] Information not available 06/25/2021 Have You Been To An Area Known To Be High Risk For COVID-19? No Information not available 05/05/2023 Are You Deaf Or Do You Have Serious Difficulty Hearing? No [email or web address] Information not available 06/25/2021 What Type Of Diet Are You Following? REGULAR [email or web address] Information n ot available 06/25/2021 What Is The Highest Grade Or Level Of School You Have Completed Or The Highest Degree You Have Received? 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 No [email or web address] Information not available 06/25/2021 Do You Use Protection During Sex? Usually [email or web address] Information not available 06/25/2021 Do You Use Your Seat Belt Or Car Seat Routinely? Yes [email or web address] Information not available 06/25/2021 Do You Have Smoke And Carbon Monoxide Detectors In Your Home? Yes [email or web address] Information not available 06/25/2021 How Much Tobacco Do You Smoke? No [email or web address] Information not available 06/25/2021 Do You Feel Stressed (tense, Restless, Nervous, Or Anxious, Or Unable To Sleep At Night)? [id number] Information not available 01/26/2023 Do You Use Any Illicit Or Recreational Drugs? No Information not available 03/25/2021 Do You Use Sunscreen Routinely? No [email or web address] Information not available 06/25/2021 Has Tobacco Cessation Counseling Been Provided? No [email or web address] Information not available 07/07/2023 Have You Used IV Drugs? No [email or web address] Information not available 06/25/2021 Do You Or Have You Ever Used Any Other Forms Of Tobacco Or Nicotine? No [email or web address] Information not available 07/07/2023 Sex: Unknown Functional Status Question Answer Note LastModified by Organization D etails LastModified Time Are you able to walk? YESWOREST [email or web address] Information not available 06/25/2021 What is your exercise level? Moderate Information not available 06/25/2021 Mental Status None recorded. Family History Relationship Description Onset Age of this Age Resolved Age Notes LastModified by Organization Details LastModified Time Mother Asthma [email or web address] Not available 12:32:08 Mother Hypercholest erolemia [email or web address] Not available 06/25 16:08:42 Mother Disorder of thyroid gland smcaley Not available 2020 12:33:04 Mother Anxiety disorder [email or web address] Not available 06/25 16:08:42 Mother Disorder of nervous system [email or web address] Not available 06/25 16:08:42 Mother Depressive disorder [email or web address] Not available 06/25 16:08:42 Paternal Grandmother Carcinoma in situ of breast [email or web address] Not available 2023 09:03:32 Paternal Grandmother Suspected ovarian cancer [email or web address] Not available 2023 09:03:32 Father Hypertensive disorder Not available 06/25 16:08:42 Paternal Grandfather Substance abuse [email or web address] Not available 06/25 16:08:42 Medical History Condition [...] SNOMED-CT Code Diagnosis ICD10 Code Diagnosis Note [id number] Lucille Coleman MD [facility] [address] [address] 03/25/2021 12:01:49 03/25/2021 15:45:47 Gynecologic examination 47717027 Z01.419 Venereal d isease screening 073450138 Z11.3 Initial pr escription of oral contraception 223765567 Z30.011 [id number] Lucille Coleman MD [facility] [address],[facility] [place] [address] 04/24/2021 10:03:00 04/24/2021 13:11:01 Chlamydial infection 144857316 A74.9 14139 Diamond Calderon [facility] [address] [address] 06/25/2021 15:55:25 06/25/2021 17:06:06 [id number] Lin Grimes , [facility] [address] [address] 01/26/2023 15:18:15 01/26/2023 16:20:40 Gynecologic examination 39491505 Z01.419 Take Calcium with Vitamin D 1200mg [...] UTD Initial pr escription of oral contraception 649035346 Z30.011 Doing well on OCPRF sent x 1yr Generalize d anxiety disorder 28510169 F41.1 PCP left & having a difficult time finding a new one.Out of her medication for almost a week now & anxiety is slowly creeping back up on her.Neg suicidal ideations or thoughts of self harm.We discussed restarting this therapy & if any issues return for f/u.RF sent x 1yrIf anxiety becomes too complicate d will refer to [facility]. [id number] Lin Grimes [facility] [address],[place] [address] 05/05/2023 14:55:02 05/06/2023 11:35:47 Nausea and vomiting 24894837 R11.2 Today we decided to switch to nextstilli s to see if this helps since this issue seems to be very cyclic in nature and occurs about 1.5wks after her last day of her menses. Starting B12/Fina D treatment with PCP. Treated for N73Nzoszqu nd B6 as this can help N/V [...] counseling and review of plan of care. [id number] Lin Griems [facility] [address],[place] [address] 06/13/2023 15:18:26 06/13/2023 17:27:59 Genital herpes simplex 36426224 A60.9 Today we discussed HSV, course of [...] review of plan of care. Urinary symptoms 8334126 08 R39.9 Medicaton sentUnable to provide urine specimen due to pain of lesions at this time. [id number] Lin Grimes [facility] [address],[place] [address] 07/07/2023 12:03:34 07/07/2023 14:33:42 Genital herpes simplex 41233278 A60.9 Vaginal exam shows lesions resolved; but [...] counseling and review of plan of care. [id number] AGGIE LAYTON NP [facility] [address] [address] 04/27/2024 09:20:24 04/27/2024 10:43:25 Urinary symptoms 217475112 R39.9 Urine culture sent for confirmati on of UTI. Empirical treatment ordered due to reported symptoms and urine dipstick results. Genital he rpes simplex 82581594 A60.9 Discussed HSV lesions on exam. Culture obtained. Offered suppressiv e therapy to prevent recurrent outbreaks, patient declined at this time. Venereal d isease screening 432647526 Z11.3 Pt requested STI testing for GC/CT.Disc ussed the various types of STDs, related symptoms and the potential consequenc es (including effects on fertility) of STD infections . Reviewed ways to limit exposure and prevention techniques . [id number] Ann Marie Martin [facility] [address] [address] 07/02/2024 09:03:09 07/02/2024 09:29:31 Gynecologic examination 13786896 Z01.419 Annual gynecologi vadim exam performed. Patient [...] - PCP STI testing - declined Contracept formerly [facility] care management 756971258 Z30.9 Happy with BC pills. Risks/bene fits reviewed.R efills sent x one year. Health Concerns Section Related Observation LastModified by Organization Detai ls LastModified Time None Recorded Concern Status LastModified by Organization Details LastModified Time None Recorded Advance Directives Directive N: Payers Encounter Date Sequence Insurance Name Policy Number Policy Antonio Covered Member ID Antonio Member ID Guarantor Name 05/05/2023 1 [facility] [id number] [facility] [id number] [facility] 06/13/2023 1 [facility] [id number] [place] [address] [id number] [facility] 07/07/2023 1 [facility] [id number] [facility] [id number] [facility] 04/27/2024 1 [facility] [id number] [place] [address] [id number] [facility] 07/02/2024 1 [facility] [id number] [place] [address] [id number] [facility] Notes Date Note Type Note Provider Name [...] flatus. Lin Grimes, RENE- [address], [place], [address], [facility] 05/06/2023 11:35:33 06/13/2023 text/html Sandra is a 22y o white reproductive age female here today with complaints of painful bumps and razor cuts on my vagina. Went to ED this past weekend.Didn't really do an exam.Didn't test her for anything.Gave her morphine via IV and told her to f/u with FIRE EXTINGUISHER TESTER. Neg pain of abd/pelvis/flank++ urinary sx's painful urination dysuria, hesitation with urination. Pressure.Neg GI sx'sNeg N/V/F/C/DNeg Vag d/c, odor, irritation, itching++Vaginal bumps Lin Grimes, [facility] [address], [place], [address], [facility] 06/13/2023 17:21:04 07/07/2023 text/html Sandra is here today for medication check of Valtrex/Nextstillis. Lin [facility]imes [facility] [address], [place], [address], [facility] 07/07/2023 14:33:01 04/27/2024 text/html Vaginal/Vulvar ProblemReported [...] concerns. AGGIE LAYTON NP [address], [place], [address], [facility] 04/27/2024 10:37:54 07/02/2024 text/html Annual GYNReport [...] Patient denies concerns today. Ann Marie Martin [facility] 07/02/2024 09:39:05 OBGyn Episode No OBEpisode recorded.
--- OUTSIDE RECORDS SUMMARY | 2024-10-25 07:10 | XMS_ITS ---
Author Organization [facility] pavan Address [address] [facility] [address] [place] [address] Care Team Providers Care Tipping Machine Operator Automatic Name Role Phone zzzzMigration, zzzzProvider Unavailable Unav ailable REASON FOR VISIT EMR-Edwardo Encounters Encounter Location Date Provider Diagnosis [facility] [address] [facility] [address] [place] [address] 05/15/2023 zzzzProvider zzzzMigration Plan Of Treatment No Information Progress Notes * Sandra FOSTER EDOB:2000 (24 yo F)Acc No.[id number]:05/15/2023 Patient: Jeronimo ALFREDO Sandra Darien :2000 A ge:22 Y S ex:Female Phone: Address:[place], [id number] Subjective: * Chief Complaints: * E MR-Edwardo * Medical History: * Surgical History: * Hospitalization/Major Diagno stic Procedure: * Social History: M igrated Social History: M igrated Social History: :: Shoe Size: :: note : 7.5. * Medications: Objective: * Vitals: * Physical Examination: Assessment: Plan: * Treatment: * Procedure Codes: * true * Date: Generated for Printi ng/Faxing/eTransmitting on: 0 10/25/2024 07:10 AM CDT
--- OUTSIDE RECORDS SUMMARY | 2024-10-25 07:10 | XMS_ITS | Continuity of Care Document ---
Author Organization [facility] Address [address] [place] [address] Phone Care Team Providers Care Medical Staff Director Name Role Phone Adrianna BRAY, Gianfranco Unavailable Unavailable Allergies, Adverse Reactions, Alerts Substance Reaction Status Criticality No Known Allergies Active No Inform ation Medications Medication Instructions Dosage Effective Dates (start - stop) Status Comments clonazepam 0.5 mg tablet take 1 tablet by oral route 2 times every day as needed 0.5 MG - Active ondansetron [address] 1 tablet by translingual route 2 times every day on top of the tongue where they will dissolve, then swallow as needed 4 MG - Active B12 ACTIVE (unknown strength) Not Available - Active citalopram 40 mg tablet take 1 tablet by oral route every day 40 MG - Active omeprazole 40 mg capsule,delayed release take 1 capsule by oral route every day before a meal 40 MG - Active Nextstellis 3 mg-14.2 mg (28) tablet take 1 tablet by oral route every day 1.00 tablet - Active Procedures Procedure Date OFFICE [id number] BODY MASS INDEX DOCD SYST BP LT 130 MM HG DIAST BP < [address] ABDOMEN&PELVIS W/CONTRAST LOW OSMOLAR CONTRAST (300 TO 399 MG IODI NE) OFFICE [id number] BODY MASS INDEX DOCD SYST BP LT 130 MM HG DIAST BP < 80 MM HG Advance Directives Directive Yes / No Effective Date File Name No Information Encounters Encounter Description Practice Location Reason(s) For Visit Diagnoses Date Provider Providers Copied on Encounter [facility], [address], [place], [place], [address], tel:[phone] [facility] No Information 4 Adrianna Medel. [address] [facility], [address], [id number] , . tel: [phone] OFFICE PRWCJ-LVE-UWI ANDED Nesha Patterson, [address], [place], [place], [address], tel:[phone] [facility] Follow Up of Nausea/vomi ting (chief complaint) Nausea and vomiting in adult 4 Shemar Ochoa. 3555 [facility], [address], [id number] , . tel:[phone] Referring Provider: [address], [place], [address]. tel:[phone] [facility], [address], [place], [place], [address], tel:[phone] [facility] No Information 3 Cheng Patterson. [address] [place], [place], [address] , [place]. tel:[phone] Referring Provider: Gianfranco Villavicencio, [address] [facility] [address] [address], [place], [address]. tel:[phone] OFFICE [id number] P-MED [facility], [address], [place], [place], [address], tel:[phone] South Nausea/vomi ting (chief complaint) Nausea and vomiting in adult 3 Adrianna Medel. [address] [place] [address] , [address], [id number] , . tel:[phone] Referring Provider: Nathan Nevarez, [address], [place], [address]. tel:[phone] Family History Family Member Type Diagnosis Age At Onset Paternal grandmother Problem Cancer, ovarian Paternal aunt Problem Breast Mother Problem Irritable bowel syndrome Paternal grandmother Problem Cancer, colon Paternal grandmother Problem Breast Payers Payer name Insurance type Covered republican ID Vandana rueda(s) [facility] CI [id number] Social History Type Description Quantity Date Captured Comments Alcohol Use Details Unknown Caffeine Use Details Unknown Tobacco Use Status No Information Smoking Status No Information Sex Female Sexual Orientation Straight or heterosexual Gender Identity Female Chief Complaint And Reason For Visit No Information Reason For Referral Reason For Referral No Information Plan Of Treatment Date Type Action Status Referral Ordered: CT abdomen and pelvis w contrast ordered History Of Present Illness Encounter Date Complaint History Of Prese nt Illness Follow Up of Nausea/vomiting Comments: She re ports her N/V has resolved. Switched her control and increased her citalopram. Started taking B12 supplements. Now no nausea or vomiting. She is able to eat what she wants. She denies acid reflux as she takes Omeprazole as needed. Weight is stable. CT of abdomen in 05/2023 WNL. Having regular formed stools without blood in stool. Comments: Starte d in February. Not constant but it is consistent. Usually occurs 1 week after her period. control was switched in response without significant benefit. Nausea started initially after a rib injury. No abdominal pain. Does have occasional vomiting. Nausea lasts for 1 week and then goes away completely for 3-4 weeks.Severely cramping stomachZofran helps somewhat but definitely not enough Nausea/vomiting Functional Status Date Functional Assessmen t No Information Instructions Date Instruction Additional Infor mation Symptoms resolved wi th medication changes. Able to tolerate all foods. Mild GERD on Omeprazole prn. No weight loss. Pt will call with any new or alarming symptoms. Follow up as needed. Related to Nausea and vomiting in adult Disease prevention Severe symptoms for 1 week per month for the past 3-4 monthsSymptoms are concerning for Cyclic Vomiting Syndrome, she meets diagnostic criteria for this diagnosisEpisodic symptoms suggest association with menstrual cycle. No symptoms since new controlNo alarm symptoms outside of the episodes. Eats almost nothing during the week of symptoms. Weight has remained stable. No fam history. Migraine history but she doesn't usually have a migraine with these episode of NVOf note, B12 level was low. Pernicious anemia is still low on differential given low frequency of symptomsSmokes marijuana at least daily- Await new trial of control. Will be helpful to see if timing of 1 week after period onset persists with new timing of control- Check CT AP given severe symptoms for multiple months- Will consider EGD if CT normal and symptoms persist- Continue B12- Will prescribe zofran since that has given some relief. Compazine has been tried in the past- Consider scopolamine patch in future for symptom control- May eventually need a trial off marijuana to see if this relieves the cycle (assuming control adjustment doesn't help)- Amitriptyline can be helpful for prophylactic [facility] control. Will await current workup before considering this Related to Nausea and vomiting in adult Assessments Type Assessment Date No Information Patient Care Teams Name Effective Dates (start - stop) Status Members No Information
--- OUTSIDE RECORDS SUMMARY | 2024-10-25 07:11 | XMS_ITS ---
Author Organization [facility] Address [address] [place] [address] Care Team Providers Care Intertype Operator Name Role Phone zzzzMigration, zzzzProvider Unavailable Unav ailable REASON FOR VISIT EMR-Edwardo Encounters Encounter Location Date Provider Diagnosis [facility] [address] [place] [address] 05/14/2023 zzzzProvider zzzzMigration Plan Of Treatment No Information Progress Notes * Sandra FOSTER EDOB:2000 (24 yo F)Acc No.[id number]:05/14/2023 Patient: Jeronimo ALFREDO Sandra Ledezma :2000 A ge:22 Y S ex:Female Phone: Address:[place], [address] Subjective: * Chief Complaints: * E MR-Edwardo * Medical History: * Surgical History: * Hospitalization/Major Diagno stic Procedure: * Medications: Objective: * Vitals: * Physical Examination: Assessment: Plan: * Treatment: * Procedure Codes: * true * Date: Generated for Printi ng/Faxing/eTransmitting on: 0 10/25/2024 07:10 AM CDT
--- OUTSIDE RECORDS SUMMARY | 2024-10-25 07:11 | XMS_ITS | Clinical Summary ---
Author Organization [facility] Address [address] [place] [address] Care Team Providers Care Nitro Worker Name Role Phone Brittney Sepulveda MD Primary Care Provider [phone] Source Comments [facility],non-owned Affiliates and Associated Physician Practices is amultiple site organization consisting of ambulatory clinics and hospital sitesin [place], [place], [place] and [place]. This disclosure is being madepursuant to the Care Everywhere program and may not contain all information available regarding this patient. Last updated 18.[facility] Allergies No known active allergies Medications * [...] Dates Next Due DTaP VACCINE IM (6wk-6yrs) 02/08/2008,,03/16/2003, 3,2002 HEP B VACCINE, PED/ADOL 06/07/2003,2002, HIB BOOSTER 12/16/2003, 3,01/12/2003, 3 MENINGOCOCCAL ACWY (MCV4P) VAC IM 03/09/2014 MMR 02/08/2008,09/02/2003 PNEUMOCOCCAL CONJ, PEDS 09/02/2003,03/16,01/12/2003, 3 POLIO IPV 02/08/2008, 4,01/12/2003, 3 PPD 09/02/2003 TDAP (7yrs+) 03/09/2014 VARICELLA 02/08/2008,12/16/2003 [...] 02/08/2008, 03/19/2004, Additional history exists COVID-19 VACCINE (2023- season) 2024 DEPRESSION SCREENING 07/25/2024 INFLUENZA VACCINE (Season Ended) 2025 ZOSTER VACCINE (1 of 2) 2052 HEPATITIS [...] Where can I go for more information? [place] [employer] ( ) www.aap.org, HealthyChildren.org www.healthychildren.org Website and free downloadable gosia for smartphones: http://wwwSigma Labs/ Use safety retraint in car Lifestyle Not on track( 017 11:23 AM CDT) Lashell Gaines RN Care Teams Nitro Worker Relationship Specialty Start Date End Date Brittney Sepulveda MD PCP - General Family Medicine 08/23/16
--- OUTSIDE RECORDS SUMMARY | 2024-10-25 07:11 | XMS_ITS | Patient Health Record ---
Author Organization [facility] Address [address] [place] [address] Support Name Relationship Address Phone Sandra Foster Guarantor Unknown Unavailable Reason For Referral No Information Plan Of Treatment No Information Insurance Providers Payer Name Payer Address Payer Phone Subscriber Number Group Number Insured Name Patient Relationship to Insured Coverage Start Date Coverage End Date All Sa[employer] [address] [address] [place], [place] [id number] Sandra Foster Self - patient is the insured
[2024-10-25 07:13] VITALS: BP 108/77; PULSE 87; RESP 16; TEMP 36.4; O2SAT 99
--- OUTSIDE RECORDS SUMMARY | 2024-10-25 07:36 | XMS_ITS | Clinical Summary ---
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
--- OUTSIDE RECORDS SUMMARY | 2024-10-25 07:36 | XMS_ITS | Referral Summary ---
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
--- OUTSIDE RECORDS SUMMARY | 2024-10-25 07:36 | XMS_ITS | Continuity of Care Document ---
Author Organization [facility] Address [address] [place] [address] Phone Care Team Providers Care Laser Technician Name Role Phone Adrianna BRAY, Gianfranco Unavailable [...] tablet - Active Procedures Procedure Date OFFICE [id number] BODY MASS INDEX DOCD SYST BP LT 130 MM HG DIAST BP < [address] ABDOMEN&PELVIS W/CONTRAST LOW OSMOLAR CONTRAST (300 TO 399 MG IODI NE) OFFICE [id number] BODY MASS INDEX DOCD SYST BP LT 130 MM HG DIAST BP < 80 MM HG Advance Directives Directive Yes / No Effective Date File Name No Information Encounters Encounter Description Practice Location Reason(s) For Visit Diagnoses Date Provider Providers Copied on Encounter [facility], [address], [place], [place], [address], tel:[phone] [facility] No Information 4 Adrianna Medel. 355[address] [facility], [address], [id number] , . tel: [phone] OFFICE [id number]-[id number]-OYH ANDED N[facility] Patterson, [address], [place], [place], [address], tel:[phone] [facility] Follow Up of Nausea/vomi ting (chief complaint) Nausea and vomiting in adult 4 Shemar Ochoa. 3555 [facility], [address], [id number] , . tel:[phone] Referring Provider: [address], [place], [address]. tel:[phone] [facility], [address], [place], [place], [id number], tel:[phone] [facility] No Information 3 Cheng Patterson. [address] [place], [place], [id number] , [place]. tel:[phone] Referring Provider: Gianfranco Villavicencio, [address] [facility] [address] [address], [place], [address]. tel:[phone] OFFICE [id number] P-MED [facility], [address], [place], [place], [address], tel:[phone] South Nausea/vomi ting (chief complaint) Nausea and vomiting in adult 3 Adrianna Medel. [address] [place] [address] , [address], [id number] , . tel:[phone] Referring Provider: Nathan Nevarez, [address], [place], [address]. tel:[phone] Family History Family Member Type Diagnosis Age At Onset Paternal grandmother Problem Breast Paternal grandmother Problem Cancer, colon Mother Problem Irritable bowel syndrome Paternal aunt Problem Breast Paternal grandmother Problem Cancer, ovarian Payers Payer name Insurance type Covered alliance party ID Vandana rueda(s) [facility] CI [id number] Social History Type Description Quantity Date Captured [...]
--- OUTSIDE RECORDS SUMMARY | 2024-10-25 07:36 | XMS_ITS | Clinical Summary ---
Author Organization [facility] Address [address] [place] [address] Care Team Providers Care Vocational Guidance Counselor Name Role Phone Brittney Sepulveda MD Primary Care Provider [phone] Source Comments [facility],non-owned Affiliates and Associated Physician Practices is amultiple site organization consisting of ambulatory clinics and hospital sitesin [place], [place], [place] and [place]. This disclosure is being madepursuant to the Care Everywhere program and may not contain all information available regarding this patient. Last updated 18.[facility] Allergies No known active allergies Medications * [...] Where can I go for more information? [place] [employer] ( ) www.aap.org, HealthyChildren.org www.healthychildren.org Website and free downloadable gosia for smartphones: http://wwwCRE Secure/ Use safety retraint in car Lifestyle Not on track( 017 11:23 AM CDT) Lashell Gaines RN Care Teams Vocational Guidance Counselor Relationship Specialty Start Date End Date Brittney Sepulveda MD PCP - General Family Medicine 08/23/16
--- NOTE | 2024-10-25 07:52 | ED.GENADULT ---
HPI - General Adult General Chief complaint: Anxiety Stated complaint: panic attack Time Seen by Provider: 10/25/24 07:09 History of Present Illness HPI narrative: 24-year-old female present to the emergency department for evaluation for increased nausea and anxiety. Patient states he does have daily nausea and that the nausea often triggers her anxiety. Patient had been taking Zofran for her nausea but ran out today. Patient does admit to daily THC use. Patient has never been diagnosed with cannabinoid hyperemesis syndrome. Patient does take citalopram for baseline anxiety patient did take 2 of her citalopram this morning. Upon arrival to the emergency department patient is very anxious appearing. Patient denies any suicidal or homicidal ideation. Related Data Home Medications ?Medication ?Instructions ?Recorded ?Confirmed ?Last Taken ?Type norethindrone 1 mg-ethinyl tablet PO DAILY 05/23/23 05/30/24 Unknown History estradiol 20 mcg (21)-iron 75 mg (7) tablet (Blisovi Fe 08/13 (28)) Allergies Allergy/AdvReac Type Severity Reaction Status Date / Time No Known Drug Allergies Allergy Unknown Unknown Verified 10/25/24 07:08 Review of Systems Review of Systems: All systems reviewed & are unremarkable except as noted in HPI and below PMFSH Past Medical History Medical History B12 deficiency Fatigue Anemia Nausea and vomiting Vitamin D deficiency ROSALIE (generalized anxiety disorder) Behavioral insomnia of childhood, unspecified type Family History Family History Father Family history of migraine headaches Hypertension Family history of hypercholesterolemia Grandparent Hypertension Family history of alcoholism Family history of malignant neoplasm of ovary Mother Family history of elevated blood lipids Family history of hypercholesterolemia Other Cerebrovascular accident Diabetes mellitus Social History Social History Smoking status: Never smoker Alcohol intake: never Substance use type: marijuana Exam Narrative: APPEARANCE: Well appearing, no pain, no distress, well-nourished. HEAD: normocephalic, atraumatic. EYES: PERRLA/EOMI, conjunctivae clear. NOSE: Normal no drainage EARS:TMS clear with good light reflex. THROAT: Pharynx clear, no exudate. NECK: Supple. No adenopathy, no masses. RESPIRATORY: Airway patent, respirations nonlabored. Clear to auscultation bilaterally, no rales, rhonchi, wheezing. CARDIOVASCULAR: Regular rate and rhythm without murmurs rubs or gallops. ABDOMINAL: Soft, nontender, nondistended, normal bowel sounds MUSCULOSKELETAL: Moves all extremities. Strength/ROM intact, No edema, No calf tenderness. NEURO: Alert. Cranial nerves II through XII intact. SKIN: Warm, dry. Normal Color PSYCHIATRIC: Anxious affect Course Vital Signs Vital signs: Vital Signs Temperature 97.5 F L 10/25/24 07:13 Pulse Rate 87 10/25/24 07:13 Respiratory Rate 16 10/25/24 07:13 Blood Pressure 108/77 10/25/24 07:13 Pulse Oximetry 99 10/25/24 07:13 Temperature 97.5 F L 10/25/24 07:13 Pulse Rate 70 10/25/24 10:12 Respiratory Rate 18 10/25/24 10:12 Blood Pressure 107/58 L 10/25/24 10:12 Pulse Oximetry 100 10/25/24 10:12 Medical Decision Making MDM Narrative Medical decision making narrative: A 24-year-old female presents to emergency department for evaluation for nausea vomiting and anxiety. Did feel improved with treatment. Patient was educated on cannabinoid hyperemesis syndrome. Differential Diagnosis Differential Diagnosis: Anxiety, depression, cannabinoid hyperemesis syndrome Vital Signs Vital Signs: Vital Signs Temperature 97.5 F L 10/25/24 07:13 Pulse Rate 87 10/25/24 07:13 Respiratory Rate 16 10/25/24 07:13 Blood Pressure 108/77 10/25/24 07:13 Pulse Oximetry 99 10/25/24 07:13 Temperature 97.5 F L 10/25/24 07:13 Pulse Rate 70 10/25/24 10:12 Respiratory Rate 18 10/25/24 10:12 Blood Pressure 107/58 L 10/25/24 10:12 Pulse Oximetry 100 10/25/24 10:12 Discharge Plan Discharge Clinical Impression: Acute anxiety, Nausea & vomiting Patient Disposition: Home, Self-Care Condition: Stable Instructions: Antibiotic Form, Acute Nausea and Vomiting (ED), Anxiety (ED) Additional Instructions: Ativan as needed for acute anxiety. Zofran as needed for nausea control. Home medications as directed. Continue to educate yourself on cannabinoid hyperemesis syndrome. Patient Language: Tanzanian Prescriptions: New lorazepam [Ativan] 0.5 mg tablet 0.5 mg PO BID PRN (Reason: anxiety) 5 Days Qty: 10 0RF ondansetron 4 mg tablet,disintegrating 4 mg PO Q8H PRN (Reason: nausea and vomiting) Qty: 14 0RF No Action norethindrone-e.estradiol-iron [Blisovi Fe 08/13 (28)] 1 mg-20 mcg (21)/75 mg (7) tablet PO DAILY clonazepam [Klonopin] 0.5 mg tablet 0.5 mg PO DAILY PRN (Reason: panic) Qty: 30 1RF ondansetron 4 mg tablet,disintegrating 4 mg PO Q6-8H PRN (Reason: nausea and vomiting) Qty: 14 0RF omeprazole 40 mg capsule,delayed release(DR/EC) 40 mg PO DAILY Qty: 30 1RF citalopram 40 mg tablet 40 mg PO DAILY Qty: 90 1RF Follow-up/Referrals: Denisha Nevarez MD [Primary Care Provider] -
[2024-10-25] MEDS: LORazepam (*CRX) 1 MG TABLET PO (08:27)
[2024-10-25] MEDS: ONDANSETRON HCL ODT 4 MG TABLET PO (08:28)
[2024-10-25 09:44] VITALS: BP 106/65; PULSE 61; RESP 16; O2SAT 99
[2024-10-25 10:12] VITALS: BP 107/58; PULSE 70; RESP 18; O2SAT 100
== END 2024-10-25 10:14 | disposition home or self-care (01) ==
PROVIDERS: Emergency Provider Emergency Medicine; PCP Family Medicine
DX: F41.9 Anxiety disorder, unspecified (principal); R11.2 Nausea with vomiting, unspecified
CPT/HCPCS: 99283; A9270

== ENCOUNTER 2025-05-10 11:27 | Outpatient (CLI) | payer OTHER, SELFPAY ==
[2025-05-10 12:50] LABS: Hematocrit 43.8 % (37.0-47.0); Hemoglobin 14.1 g/dL (12.0-15.0); Immature Granulocyte Percent A 0.4 % (0-0.5); Lymphocytes Absolute Auto 3.52 K/mm3 (0.9-3.2); Mean Corpuscular HGB Conc 32.2 g/dl (32-36); Mean Corpuscular Hemoglobin 30.3 pg (26-34); Mean Corpuscular Volume 94.0 fl (80-100); Nucleated Red Blood Cells Absolute Auto 0.000 K/mm3 (0.0-0.012); Nucleated Red Blood Cells Perc 0.0 % (0.0-0.2); Platelet Count Result 288 k/mm3 (150-375); Red Blood Count 4.66 M/mm3 (4.2-5.4); White Blood Count 9.9 K/mm3 (4.5-10.0)
[2025-05-10 13:14] LABS: Free T4 Free Thyroxine 1.10 ng/dL (0.78-2.19)
[2025-05-10 14:34] LABS: Alanine Aminotransferase 13 U/L (6-35); Albumin Level 4.2 g/dL (3.5-5.1); Alkaline Phosphatase 71 U/L (38-126); Anion Gap 7 mmol/L (4-12); Aspartate Amino Transferase 28 U/L (14-36); Bilirubin,Total 0.5 mg/dL (0.2-1.3); Blood Urea Nitrogen 13 mg/dL (7-17); Calcium 9.5 mg/dL (8.4-10.2); Carbon Dioxide 24 mmol/L (22-30); Chloride 107 mmol/L (98-107); Estimated Glomerular Filt Rate > 60; Glucose 73 mg/dL (65-110); Potassium 4.4 mmol/L (3.4-5.0); Sodium 138 mmol/L (137-145); Thyroid Stimulating Hormone 0.579 uIU/mL (0.465-4.680); Total Protein 7.0 g/dL (6.3-8.2)
== END 2025-05-10 11:28 | disposition home or self-care (01) ==
LOC: ANHGOSHLAB 11:28
PROVIDERS: PCP Family Medicine; Visit Provider Nurse Practitioner Family
DX: E05.90 Thyrotoxicosis, unspecified without thyrotoxic crisis or storm (principal); Z79.899 Other long term (current) drug therapy
CPT/HCPCS: 36415; 80053; 84439; 84443; 85025